=== PATIENT | male | born 1975 | race Caucasian/White ===

== ENCOUNTER 2017-10-06 11:28 | Inpatient (IN) | payer OTHER ==
[~2017-10-06] VITALS: Ht 167.6 cm; Wt 72.6 kg
--- NOTE | 2017-10-06 11:30 | NUR ---
BB FAMILY FOR SEVERE ABDOMINAL PAIN, BILATERAL GROIN PAIN. PT STS HE'S BEEN HAVING DIARRHEA IN THE PAST 3 DAYS, BUT NO EPISODE TODAY. PT HAS A H/O AIDS. H/O CVA 3 YRS AGO AND HAS RT SIDED DEFICIT/WEAKNESS. A/OX4. NAD ALL NEEDS ARE ATTENDED, KEPT COMFORTABLE. PENDING ER MD WISDOM
[2017-10-06] MEDS ORDERED: ONDANSETRON HCL/PF 4 MG/2 ML VIAL ONE ×2 (12:22→13:31)
[2017-10-06] MEDS ORDERED: MORPHINE SULFATE INJ 4 MG/ML DISP.SYRIN ONE (12:23)
[2017-10-06 12:27] LABS: BASOPHILS # (AUTO) 0.1 /CMM (0.0-0.2); BASOPHILS % (AUTO) 1.5 % (0.0-2.0); EOSINOPHILS % (AUTO) 1.7 % (0.0-6.0); HEMATOCRIT 41 % (39-51); HEMOGLOBIN 13.1 g/dL (13.5-17.5); LYMPHOCYTES # (AUTO) 2.1 /CMM (0.8-4.8); LYMPHOCYTES % (AUTO) 30.9 % (20.0-44.0); MEAN CORPUSCULAR HGB CONC 32 g/dl (31.0-36.0); MEAN CORPUSCULAR VOLUME 74 fL (80-96); MONOCYTES # (AUTO) 0.5 /CMM (0.1-1.30); MONOCYTES % (AUTO) 7.1 % (2.0-12.0); NEUTROPHILS # (AUTO) 3.9 /CMM (1.8-8.9); NEUTROPHILS % (AUTO) 58.8 % (43.0-81.0); PLATELET COUNT (AUTO) 247 /CMM (150-450); RDW COEFFICIENT OF VARIATION 17.6 (11.5-15.0); RED BLOOD CELL COUNT(AUTO) 5.51 MIL/uL (4.5-6.0); WHITE BLOOD COUNT (AUTO) 6.7 K/uL (4.3-11.0)
[2017-10-06] MEDS ORDERED: IV NS 0.9% 1,000 ML BAG IV ONE (12:30)
[2017-10-06] MEDS ORDERED: ONDANSETRON HCL/PF 4 MG/2 ML VIAL IVP ONE (12:30)
[2017-10-06] MEDS ORDERED: MORPHINE SULFATE INJ 2 MG/ML DISP.SYRIN IV ONE (12:30)
[2017-10-06 12:39] LABS: CALCIUM, SERUM 8.3 mg/dL (8.5-10.1); CREATININE 1.2 mg/dL (0.6-1.3); POTASSIUM 3.7 mmol/L (3.5-5.1)
[2017-10-06 12:43] LABS: INR 0.93 (0.85-1.15)
[2017-10-06 12:45] LABS: BILIRUBIN,TOTAL 0.3 mg/dL (0.2-1.0)
[2017-10-06] MEDS ORDERED: IOHEXOL-300 100 ML VIAL IV ONE (13:11)
[2017-10-06] MEDS ORDERED: IV NS 0.9% 500 ML IV ONE (13:12)
[2017-10-06] MEDS ORDERED: CT SWABBABLE VALVE TRANS SET 1 EA INFUS.SET MC ONE (13:12)
[2017-10-06] MEDS ORDERED: HYDROMORPHONE INJ 2 MG/ML DISP.SYRIN ONE ×2 (13:32→15:42)
--- NOTE | 2017-10-06 13:43 | NUR ---
DILAUDID 1MG AND ZOFRAN 4MG GIVEN. VERBAL ORDER RECEIVED
[2017-10-06] MEDS ORDERED: ABAC1TAB15 PO (14:10)
[2017-10-06] MEDS ORDERED: HYDR-3976 GT (14:10)
[2017-10-06] MEDS ORDERED: LEUC10TA PO (14:10)
[2017-10-06] MEDS ORDERED: DARU1TAB PO (14:10)
[2017-10-06] MEDS ORDERED: PYRI25TA PO (14:10)
[2017-10-06] MEDS ORDERED: SULF500T46 PO (14:10)
[2017-10-06] MEDS ORDERED: AZIT500T PO (14:10)
[2017-10-06] MEDS ORDERED: SULF1TAB48 PO (14:10)
[2017-10-06] MEDS ORDERED: BENA10TA9 PO (14:10)
--- NOTE | 2017-10-06 14:42 | NUR ---
CALLED SURGERY VESSEL BUILDER, LEFT [phone]
--- NOTE | 2017-10-06 15:20 | NUR ---
PT SAID THAT HE HAD APPENDEDCTOMY 8 YRS AGO. ALISON POTTER NOTIFIED
--- NOTE | 2017-10-06 15:39 | NUR ---
REPORT GIVEN TO URIEL NIELSEN
[2017-10-06 16:00] VITALS: BP 164/100
[2017-10-06] MEDS ORDERED: ONDANSETRON HCL/PF 4 MG/2 ML VIAL IV PRN (16:00)
[2017-10-06] MEDS ORDERED: HYDROMORPHONE INJ 0.5 MG/0.5 ML SYRINGE IV PRN ×2 (16:00)
--- NOTE | 2017-10-06 16:22 | NUR ---
TRANSFERRED TO FLOOR IN STABLE CODNITION
--- NOTE | 2017-10-06 16:25 | NUR ---
RN MS NOTES RECEIVED PT FROM E.R. STAFF, VIA WHEELCHAIR, PT IS AWAKE, ALERT AND ORIENTED, STILL WITH COMPLAINT OF 8/10 PAIN AT ABDOMEN, BACK AND LEGS, ASSISTED TO BED, MADE COMFORTABLE, ROOM SET UP ORIENTATION PROVIDED, VERBALIZED UNDERSTANDING, SEEN AND EXAMINED BY DR. SANTOS HARPER AND JAZMINE MINE WIRER AT BEDSIDE, PLAN OF CARE DISCUSSED WITH PT, VERBALIZED UNDERSTANDING, PER MD OK FOR CLEAR LIQUID DIET, PT ABLE TO AMBULATE WITH STANDBY ASSISTANCE,PT REQUESTS TO HAVE A SHOWER, OK WITH DR. HARPER.
[2017-10-06] MEDS ORDERED: MAG HYDROX/AL HYDROX/SIMETH 30 ML UDC PO PRN (17:30)
[2017-10-06] MEDS ORDERED: MAGNESIUM HYDROXIDE 30 ML UDC PO PRN (17:30)
[2017-10-06] MEDS ORDERED: ACETAMINOPHEN 325 MG TABLET PO PRN (17:30)
[2017-10-06] MEDS ORDERED: ONDANSETRON HCL/PF 4 MG/2 ML VIAL IVP PRN (17:30)
[2017-10-06] MEDS ORDERED: Z GUARD REMEDY 2 OZ OINT TP PRN (17:30)
[2017-10-06] MEDS ORDERED: HYDROCODONE/APAP 5/325MG 1 EACH TABLET PO PRN (17:30)
[2017-10-06] MEDS: IV NS 0.9% 1,000 ML IV PRN (18:28)
[2017-10-06] MEDS: HYDROMORPHONE INJ 0.5 MG/0.5 ML SYRINGE IV PRN ×2 (18:56→23:14)
[2017-10-06] MEDS: BENAZEPRIL HCL 10 MG TABLET PO SCH (18:57)
--- NOTE | 2017-10-06 19:20 | NUR ---
MS RN OPENING NOTES RECEIVED PT RESTING IN BED, A & O X 4, NO C/O ABD PAIN, NO SOB, NO ACUTE DISTRESS NOTED. IV ACCESS TO LFA, RUNNING WITH NS @ 75 ML/HR. ON CLEAR LIQUID DIET, TOLERATING WELL. AMBULATORY WITH ASSIST. HAS RIGHT SIDED WEAKNESS DUE TO THE STROKE HX. SAFETY MEASURES IN PLACE. CALL LIGHT WITHIN REACH. WILL CONTINUE TO MONITOR FOR PAIN MGMT, SAFETY & COMFORT.
--- NOTE | 2017-10-06 19:28 | NUR ---
RN MS NOTES PT IN BED, AWAKE, ALERT AND ORIENTED, WITH COMPLAINT OF PAIN 8/10 TO ABDOMEN, BACK AND LEGS, PAIN MEDICATION GIVEN ORDERED, PT SEEN AND EXAMINED BY DR. TRONCOSO, ORDERED US OF PENIS, ALSO ORDERED ID CONSULT, DOMENICA BLOUNT INFORMED, IVF INFUSING WELL, CALL LIGHT WITHIN REACH, ALL NEEDS ATTENDED.
--- NOTE | 2017-10-06 19:55 | NUR ---
MS RN NOTE PT'S FAMILY BROUGHT 2 HOME MEDS TRIUMEQ & PREZCOBIX & GAVE TO THE PT. PT TOOK THE MEDS WITHOUT INFORMING THE NURSE, STATING HE SUPPOSE TO TAKE THESE HIV MEDS EVERYDAY, CAN NOT MISS ANY DOSE. MEDS COLLECTED FROM THE PT & SENT TO THE PHARMACY. ALSO REMINDED THE PT TO INFORM THE NURSE BEFORE TAKING ANY HOME MEDS. PT JUST NODDED HIS HEAD IN RESPONSE. WILL MONITOR CLOSELY.
[2017-10-06 20:00] VITALS: BP 133/88
--- NOTE | 2017-10-06 23:14 | NUR ---
PRN DILAUDID GIVEN PT C/O ABDOMINAL PAIN 01/08 & WANTED TO TAKE DILAUDID ONLY @ THIS TIME. PRN IV MED GIVEN. WILL REASSESS FOR EFFECTIVENESS.
[2017-10-07] MEDS: ZOLPIDEM TARTRATE 5 MG TABLET PO PRN ×2 (01:02→23:57)
--- NOTE | 2017-10-07 01:02 | NUR ---
PRN AMBIEN GIVEN PT VERBALIZED THAT HE IS UNABLE TO SLEEP, NEEDS SOMETHING FOR SLEEP. PRN AMBIEN GIVEN ORDERED. WILL REASSESS FOR EFFECTIVENESS.
[2017-10-07] MEDS: HYDROMORPHONE INJ 0.5 MG/0.5 ML SYRINGE IV PRN ×4 (04:14→22:09)
--- NOTE | 2017-10-07 04:14 | NUR ---
PRN DILAUDID GIVEN PT C/O ABDOMINAL PAIN 01/08 & WANTED TO TAKE DILAUDID ONLY. PRN IV MED GIVEN. WILL REASSESS FOR EFFECTIVENESS.
[2017-10-07 05:17] LABS: *BASOS 0 % (Not Estab.); *EOS 2 % (Not Estab.); *EOS, ABSOLUTE 0.1 x10E3/uL (0.0-0.4); *HCT 38.6 % (37.5-51.0); *HGB 12.3 g/dL (13.0-17.7); *IMMATURE GRANULOCYTES 1 % (Not Estab.); *LYMPHOCYTES 36 % (Not Estab.); *LYMPHS, ABSOLUTE 2.3 x10E3/uL (0.7-3.1); *MCH 24.2 pg (26.6-33.0); *MCHC 31.9 g/dL (31.5-35.7); *MCV 76 fL (79-97); *MONOCYTES 8 % (Not Estab.); *MONOS, ABSOLUTE 0.5 x10E3/uL (0.1-0.9); *NEUTROPHILS 53 % (Not Estab.); *NEUTROPHILS, ABSOLUTE 3.5 x10E3/uL (1.4-7.0); *PLT 248 x10E3/uL (150-379); *RBC 5.08 x10E6/uL (4.14-5.80); *RDW 17.8 % (12.3-15.4)
--- NOTE | 2017-10-07 06:37 | NUR ---
MS RN CLOSING NOTES PT SLEPT WELL @ NIGHT, A & O X 4, NO C/O ABD PAIN @ THIS TIME, NO SOB, NO ACUTE DISTRESS NOTED. IV ACCESS TO LFA, RUNNING WITH NS @ 75 ML/HR. ON CLEAR LIQUID DIET, TOLERATING WELL. AMBULATORY WITH ASSIST. HAS RIGHT SIDED WEAKNESS DUE TO THE STROKE HX. ALL NEEDS MET. SAFETY MEASURES IN PLACE. CALL LIGHT WITHIN REACH. WILL ENDORSE TO AM RN FOR CONTINUITY OF CARE.
[2017-10-07 06:51] LABS: BASOPHILS % (AUTO) 0.4 % (0.0-2.0); EOSINOPHILS % (AUTO) 2.6 % (0.0-6.0); HEMATOCRIT 32 % (39-51); HEMOGLOBIN 10.5 g/dL (13.5-17.5); LYMPHOCYTES # (AUTO) 1.6 /CMM (0.8-4.8); LYMPHOCYTES % (AUTO) 29.9 % (20.0-44.0); MEAN CORPUSCULAR HGB CONC 33 g/dl (31.0-36.0); MEAN CORPUSCULAR VOLUME 74 fL (80-96); MONOCYTES # (AUTO) 0.4 /CMM (0.1-1.30); MONOCYTES % (AUTO) 7.5 % (2.0-12.0); NEUTROPHILS # (AUTO) 3.2 /CMM (1.8-8.9); NEUTROPHILS % (AUTO) 59.6 % (43.0-81.0); PLATELET COUNT (AUTO) 225 /CMM (150-450); RDW COEFFICIENT OF VARIATION 18.4 (11.5-15.0); RED BLOOD CELL COUNT(AUTO) 4.31 MIL/uL (4.5-6.0); WHITE BLOOD COUNT (AUTO) 5.3 K/uL (4.3-11.0)
[2017-10-07 07:10] LABS: ALBUMIN 1.7 g/dL (3.4-5.0); BILIRUBIN,TOTAL 0.3 mg/dL (0.2-1.0); CALCIUM, SERUM 7.8 mg/dL (8.5-10.1); CREATININE 0.5 mg/dL (0.6-1.3); MAGNESIUM 1.6 mg/dL (1.8-2.4); PHOSPHORUS 2.6 mg/dL (2.5-4.9); POTASSIUM 3.5 mmol/L (3.5-5.1)
[2017-10-07 07:16] LABS: THYROID STIMULATING HORMONE 5.861 uIU/mL (0.358-3.74)
[2017-10-07 08:00] VITALS: BP 126/86
--- NOTE | 2017-10-07 08:00 | NUR ---
rn notes RECEIVED PATIENT IN THE BED A/O X4, NO SOB. PATIENT FALL PRECAUTION, IV INFUSING ON LEFT UPPER ARN NS AT 75 ML/HR. SCHEDULED MEDICATION ADMINISTER. PATIENT USING URINAL. NEEDS ATTENDED AND ANTICIPATED, CALL LIGHT WITHIN TO REACH. CONTINUED MONITORING.
[2017-10-07] MEDS ORDERED: PREZCOBIX PO SCH (09:00)
[2017-10-07] MEDS ORDERED: TRIUMEQ PO SCH (09:00)
[2017-10-07] MEDS ORDERED: BENAZEPRIL HCL 10 MG TABLET PO SCH (09:00)
[2017-10-07 09:09] LABS: BAND % (MANUAL) 2 % (0.0-5.0); EOSINOPHILS % (MANUAL) 4 % (0-4); LYMPHOCYTES % (MANUAL) 35 % (16-48); MONOCYTES % (MANUAL) 7 % (0-11.0); NEUTROPHILS % (MANUAL) 52 (42-76)
[2017-10-07] MEDS: NYSTATIN (PYXIS) 500,000 UNIT/5 ML ORAL.SUSP PO SCH ×3 (09:14→16:37)
[2017-10-07] MEDS: PANTOPRAZOLE 40 MG TABLET.DR PO SCH (09:14)
[2017-10-07] MEDS: BENAZEPRIL HCL 10 MG TABLET PO SCH (09:15)
--- NOTE | 2017-10-07 09:16 | NUR ---
RN NOTES ADMINISTERED DILAUDID 0.5 MG/ML IV PUSH PER PATIENT REQUEST FOR GENERALIZED PAIN 01/08, V/S TAKEN BP -126/86, P-100, CONTINUED MONITORING.
[2017-10-07] MEDS: IV NS 0.9% 1,000 ML IV PRN (09:36)
[2017-10-07] MEDS: Magnesium 1GM/D5W 100ML PREMIX 100 ML IV SCH ×2 (09:36→10:43)
[2017-10-07] MEDS: SULFAMETH/TRIMETH 800/160 MG 1 UDTAB TABLET PO SCH (09:41)
[2017-10-07 14:22] LABS: *% CD 4 POS. LYMPH 7.5 % (30.8-58.5); *% CD 8 POS. LYMPH 81.8 % (12.0-35.5); *ABSOLUTE CD 4 HELPER 173 /uL (359-1519); *ABSOLUTE CD 8 SUPPRESSOR 1881 /uL (109-897); *CD4/CD8 RATIO 0.09 (0.92-3.72)
[2017-10-07] MEDS ORDERED: HYDROMORPHONE INJ 0.5 MG/0.5 ML SYRINGE IV PRN (14:30)
--- NOTE | 2017-10-07 15:12 | NUR ---
RN NOTES ADMINISTERED DILAUDID 1 MG /ML IV PUSH PER PATIENT REQUEST FIR GENERALIZED PAIN /, V/S TAKEN BP -120/76, P-68. ENCOURAGED TO INCREASE FLUID INTAKE. CONTINUED MONITORING.
[2017-10-07 16:00] VITALS: BP 124/89
--- NOTE | 2017-10-07 16:00 | NUR ---
RN NOTES US SPECIMEN COLLECTED. MEDICATION WERE ADMINISTERED FOR PAIN EFFECTIVE. CONTINUED MONITORING.
--- NOTE | 2017-10-07 18:30 | NUR ---
RN NOTES PATIENT IN THE BED. NO ACUTE RESPIRATORY DISTRESS. INFUSING NS AT 75 ML/HR INTACT. CALL LIGHT WITHIN TO REACH. ENDORSED ONCOMING NURSE FOR PAULETTE.
[2017-10-07 19:49] LABS: APPEARANCE,URINE CLEAR (CLEAR); BILIRUBIN,URINE NEGATIVE (NEGATIVE); BLOOD, URINE 1+ Ery/uL (NEGATIVE); COLOR,URINE YELLOW (YELLOW); KETONES,URINE NEGATIVE (NEGATIVE); LEUKOCYTE ESTERASE ,URINE NEGATIVE (NEGATIVE); NITRITE, URINE NEGATIVE (NEGATIVE); PH,URINE 7.5 (5.0-8.0); PROTEIN,URINE 3+ mg/dl (NEGATIVE); UGLUCOSE NEGATIVE (NEGATIVE)
[2017-10-07] MEDS: TRIUMEQ TABLET PO SCH (20:00)
[2017-10-07 20:19] VITALS: BP 118/62
[2017-10-07 20:30] LABS: BACTERIA,URINE None seen /HPF (None Seen); SQUAMOUS EPITHELIAL CELL,UR Rare /HPF (None Seen); WBC,URINE 0-2 /HPF (0-3)
[2017-10-08] MEDS: PANTOPRAZOLE 40 MG TABLET.DR PO SCH (06:35)
[2017-10-08] MEDS: HYDROMORPHONE INJ 0.5 MG/0.5 ML SYRINGE IV PRN ×4 (06:35→20:32)
--- NOTE | 2017-10-08 06:44 | NUR ---
MS RN CLOSING NOTES PATIENT REMAIN IN STABLE CONDITION, ALERT ET ORIENTED. RESP. EVEN ET UNLABORED. NO SOB, NO ACUTE DISTRESS NOTED. IV ACCESS TO LFA, RUNNING WITH NS @ 75 ML/HR. ON CLEAR LIQUID DIET, TOLERATING WELL. ADMINSITERED ALL MEDS ORDERED. AMBULATORY WITH ASSIST. HAS RIGHT SIDED WEAKNESS DUE TO THE STROKE HX. ALL NEEDS MET. SAFETY MEASURES IN PLACE. CALL LIGHT WITHIN REACH. WILL ENDORSE TO AM RN FOR CONTINUITY OF CARE.
--- NOTE | 2017-10-08 07:25 | NUR ---
RN CLOSING NOTES: PATIENT RESTING IN BED. NONLABORED BREATHING NOTED ON ROOM AIR. NO SIGNS OF DISTRESS NOTED. IV SITE ON RIGHT ARM PATENT AND INTACT WITH ORDERED FLUIDS RUNNING. BED IN LOWEST LOCKED POSITION. CALL LIGHT WITHIN REACH WILL CONTINUE TO MONITOR
[2017-10-08 08:00] VITALS: BP 123/73
[2017-10-08] MEDS: SULFAMETH/TRIMETH 800/160 MG 1 UDTAB TABLET PO SCH (08:44)
[2017-10-08] MEDS: NYSTATIN (PYXIS) 500,000 UNIT/5 ML ORAL.SUSP PO SCH ×3 (08:47→16:22)
[2017-10-08] MEDS: BENAZEPRIL HCL 10 MG TABLET PO SCH (08:47)
[2017-10-08] MEDS ORDERED: LEUCOVORIN CALCIUM 5 MG TABLET PO SCH (09:00)
[2017-10-08] MEDS ORDERED: PYRIMETHAMINE 25 MG PO SCH (09:00)
[2017-10-08] MEDS ORDERED: SULFASALAZINE 500 MG TABLET PO SCH (09:00)
[2017-10-08 11:06] LABS: BASOPHILS % (AUTO) 0.5 % (0.0-2.0); EOSINOPHILS % (AUTO) 2.7 % (0.0-6.0); HEMATOCRIT 32 % (39-51); HEMOGLOBIN 10.3 g/dL (13.5-17.5); LYMPHOCYTES # (AUTO) 1.3 /CMM (0.8-4.8); LYMPHOCYTES % (AUTO) 32.4 % (20.0-44.0); MEAN CORPUSCULAR HGB CONC 32 g/dl (31.0-36.0); MEAN CORPUSCULAR VOLUME 74 fL (80-96); MONOCYTES # (AUTO) 0.4 /CMM (0.1-1.30); MONOCYTES % (AUTO) 9.1 % (2.0-12.0); NEUTROPHILS # (AUTO) 2.2 /CMM (1.8-8.9); NEUTROPHILS % (AUTO) 55.3 % (43.0-81.0); PLATELET COUNT (AUTO) 194 /CMM (150-450); RDW COEFFICIENT OF VARIATION 18.2 (11.5-15.0); RED BLOOD CELL COUNT(AUTO) 4.34 MIL/uL (4.5-6.0)
[2017-10-08 11:12] LABS: POTASSIUM 3.8 mmol/L (3.5-5.1)
[2017-10-08 11:35] LABS: EOSINOPHILS % (MANUAL) 3 % (0-4); LYMPHOCYTES % (MANUAL) 35 % (16-48); MONOCYTES % (MANUAL) 6 % (0-11.0); NEUTROPHILS % (MANUAL) 56 (42-76)
--- NOTE | 2017-10-08 11:43 | NUR ---
PATIENT TO SHOWER NEEDED PER ORDERS
[2017-10-08 12:48] VITALS: BP 124/85
--- NOTE | 2017-10-08 13:57 | NUR ---
1334 PATIENT STATING HAVING A 7/10 CHEST PAIN. STATING THAT IT IS ACHING. DENYING THAT IT IS RADIATING TO SHOULDERS. NONLABORED BREATHING NOTED ON ROOM AIR. BP WNL STAT EKG ORDERED EKG RESULTS INDICATING NORMAL SINUS RHYTHM PATIENT ASSESSED NOW- STATES THAT PAIN HAS CEASED
--- NOTE | 2017-10-08 14:27 | NUR ---
MEDICAL RECORDS FROM DR MAYORGA- UNABLE TO REACH MEDICAL RECORDS TO OBTAIN REQUESTED RECORDS BY DR DENNIS. ÁLVARO BLOUNT NOTIFIED WILL ATTEMPT AGAIN
[2017-10-08] MEDS: AZITHROMYCIN 250 MG TABLET PO SCH (15:06)
[2017-10-08 16:00] VITALS: BP 120/72
--- NOTE | 2017-10-08 19:20 | NUR ---
MEDICAL RECORDS FROM DR MAYORGA- FAXED PATIENT'S CONSENT AGAIN, UNABLE TO REACH OFFICE, ENDORSED TO NEXT RN
--- NOTE | 2017-10-08 19:20 | NUR ---
RN CLOSING NOTES: PATIENT RESTING IN BED. NONLABORED BREATHING NOTED ON ROOM AIR. NO SIGNS OF DISTRESS NOTED. IV SITE ON RIGHT ARM PATENT AND INTACT WITH ORDERED FLUIDS RUNNING. BED IN LOWEST LOCKED POSITION. NO DIARRHEA DURING SHIFT. BED IN LOWEST LOCKED POSITION. CALL LIGHT WITHIN REACH. ENDORSED TO NEXT NURSE
--- NOTE | 2017-10-08 19:24 | NUR ---
PER TOM, WOUND CULTURE FROM ANUS TO BE SENT TO LAB. COLLECTED
[2017-10-08 20:00] VITALS: BP_SYST 108; BP_SYST 130; BP_DIAS 74; BP_DIAS 79
[2017-10-08] MEDS: TRIUMEQ TABLET PO SCH (20:15)
--- NOTE | 2017-10-08 21:16 | NUR ---
RN NOTES PATIENT IN BED, ALERT AND ORIENTED X4, NO SOB, TOLERATING ROOM AIR, SPO2 96%, COMPLAINING OF PAIN TO THE EPIGASTRIC AREA OF 8/10, WAS GIVEN DILAUDID 3 HRS AGO. WILL GIVE PAIN MEDICATION WHEN DUE. AMBULATES TO THE TOILET, HX OF CVA WITH RIGHT SIDED WEAKNESS, NEEDS ATTENDED, CALL LIGHT WITHIN REACH.
[2017-10-09] MEDS: HYDROMORPHONE INJ 0.5 MG/0.5 ML SYRINGE IV PRN ×4 (00:37→15:25)
[2017-10-09] MEDS: IV NS 0.9% 1,000 ML IV PRN ×2 (00:41→14:12)
[2017-10-09] MEDS ORDERED: HYDROMORPHONE INJ 2 MG/ML DISP.SYRIN ONE (04:38)
--- NOTE | 2017-10-09 05:22 | NUR ---
RN NOTES UNABLE TO SCAN DILAUDID, TAKEN DILAUDID 2MG/ML IN ANOTHER UNIT, RUN OUT IN MED SURG
--- NOTE | 2017-10-09 06:27 | NUR ---
RN NOTES PATIENT IS ALERT AND AWAKE, NO SOB, ON ROOM AIR, NO COMPLAIN OF PAIN AT THIS TIME, PERFORMED WOUND CARE TO SACRAL AREA, FOUND IV LINE DISLODGED, STARTED NEW LINE TO LEFT HAND. PATIENT DECLINE TO SIGN CONSENT FOR RIGHT CHEEK BIOPSY, WANTS TO SPEAK TO MD FIRST. NEEDS ATTENDED, CALL LIGHT WITHIN REACH. Addendum: 10/09/17 at 0629 by XIOMARA SMYTH RN PLEASE IGNORE ABOVE NOTES, NOT FOR PATIENT
--- NOTE | 2017-10-09 06:30 | NUR ---
RN NOTES ALERT AND AWAKE, NO DISTRESS, NO SOB, PROVIDED PAIN MEDICATION TO PAIN IN ABDOMEN. REPORTED GOOD RELIEF. CONTINENT OF BOWEL AND BLADDER, ABLE TO AMBULATE TO TOILET, SLEPT FOR 5 HOURS, NEEDS ATTENDED, CALL LIGHT WITHIN REACH.
--- NOTE | 2017-10-09 07:45 | NUR ---
RN NOTES PATIENT A/OX4, VERBALLY RESPONSIVE, NO DISTRESS NOTED, BREATHING EVEN AND UNLABORED, NO SOB NOTED, PATIENT DENIES PAIN AT THIS TIME, NEEDS ATTENDED AND MET. IVF INFUSING AND TOLERATING WELL, CALL LIGHT WITHIN REACH, WILL CONTINUE TO MONITOR.
[2017-10-09 08:00] VITALS: BP 135/88
[2017-10-09] MEDS: NYSTATIN (PYXIS) 500,000 UNIT/5 ML ORAL.SUSP PO SCH ×3 (08:31→17:01)
[2017-10-09] MEDS: AZITHROMYCIN 250 MG TABLET PO SCH (08:31)
[2017-10-09] MEDS: PANTOPRAZOLE 40 MG TABLET.DR PO SCH (08:31)
[2017-10-09] MEDS: SULFAMETH/TRIMETH 800/160 MG 1 UDTAB TABLET PO SCH (08:31)
[2017-10-09] MEDS: BENAZEPRIL HCL 10 MG TABLET PO SCH (08:31)
[2017-10-09 09:08] LABS: BASOPHILS % (AUTO) 0.5 % (0.0-2.0); EOSINOPHILS % (AUTO) 5.4 % (0.0-6.0); HEMATOCRIT 32 % (39-51); HEMOGLOBIN 10.2 g/dL (13.5-17.5); MEAN CORPUSCULAR HGB CONC 32 g/dl (31.0-36.0); MEAN CORPUSCULAR VOLUME 74 fL (80-96); MONOCYTES # (AUTO) 0.3 /CMM (0.1-1.30); MONOCYTES % (AUTO) 8.1 % (2.0-12.0); NEUTROPHILS # (AUTO) 1.9 /CMM (1.8-8.9); PLATELET COUNT (AUTO) 229 /CMM (150-450); RED BLOOD CELL COUNT(AUTO) 4.29 MIL/uL (4.5-6.0); WHITE BLOOD COUNT (AUTO) 3.4 K/uL (4.3-11.0)
[2017-10-09 09:17] LABS: POTASSIUM 3.4 mmol/L (3.5-5.1)
--- NOTE | 2017-10-09 10:00 | NUR ---
RN NOTES PATIENT SEEN BY DOMENICA POPE NP.
[2017-10-09] MEDS ORDERED: POTASSIUM CHLORIDE 20 MEQ TAB.PRT.SR PO ONE (11:00)
--- NOTE | 2017-10-09 15:00 | NUR ---
RN NOTES PATIENT SEEN BY DR. ERASMO HARPER. NO NEW ORDER AT THIS TIME.
[2017-10-09] MEDS: SOD FERRIC GLUC 125 MG in IV NS 0.9% 100 ML IV SCH (15:24)
[2017-10-09 16:00] VITALS: BP 139/92
[2017-10-09 16:20] LABS: *HIV-1 log10 RNA 3.653 (.)
[2017-10-09] MEDS: HYDROCODONE BIT/HOMATROPINE 5 ML UDC PO PRN (17:01)
[2017-10-09] MEDS: METRONIDAZOLE 500MG/ NS 100ML 500 MG in PREMIX 1 EA IV SCH ×2 (17:03→23:29)
[2017-10-09] MEDS: HYDROMORPHONE INJ 2 MG/ML DISP.SYRIN IV PRN ×2 (17:57→21:12)
--- NOTE | 2017-10-09 18:33 | NUR ---
RN NOTES PATIENT A/OX4, BREATHING EVEN AND UNLABORED, PATIENT IS ON CONTACT PRECAUTION FOR C. DIFF, PER PATIENT HE HAD BM X3, SOFT STOOLS. PATIENT SEEN AND EXAMINED BY ID, DR. HARPER AND GI . DOMENICA POPE SPRING COVERER ADJUSTED DILAUDID TO EVERY 3 HOURS PRN, AND ADDED A COUGH MEDICINE PRN. PATIENT JUST RECEIVED DILAUDID AND RESTING AT THIS TIME. ALL NEEDS ATTENDED AND MET, CALL LIGHT WITHIN REACH, WILL ENDORSE TO COMMUNITY AMBASSADOR FOR PAULETTE.
[2017-10-09] MEDS: TRIUMEQ TABLET PO SCH (19:41)
[2017-10-09 20:00] VITALS: BP 143/79
--- NOTE | 2017-10-09 21:13 | NUR ---
DILAUDID 2 MG IV ADMINISTERED, C/O ABDOMINAL PAIN, 01/08 ON PAIN SCALE. Addendum: 10/09/17 at 2115 by SIMA SARMIENTO RN DILAUDID 1 MG IV GIVEN. USER ERROR ABOVE.
[2017-10-10] MEDS: HYDROMORPHONE INJ 2 MG/ML DISP.SYRIN IV PRN ×4 (01:02→20:57)
--- NOTE | 2017-10-10 01:02 | NUR ---
DILAUDID 1 MG IVP ADMINISTERED, C/O ABDOMINAL PAIN, 8/10 ON PAIN SCALE.
--- NOTE | 2017-10-10 07:15 | NUR ---
MS RN NOTES' RECEIVED PATIENT IN BED ALERT ORIENTED X4. NO ACUTE DISTRESS NOTED. BREATHING UNLABORED. DENIED ANY PAIN. IV ACCESS PATENT AND INTACT. SAFETY MEASURES IN PLACE. CALL LIGHT WITHIN REACH. WILL CONTINUE TO MONITOR ACCORDINGLY.
[2017-10-10 07:36] LABS: CALCIUM, SERUM 8.2 mg/dL (8.5-10.1); CREATININE 0.9 mg/dL (0.6-1.3); POTASSIUM 4.4 mmol/L (3.5-5.1)
[2017-10-10 08:00] VITALS: BP 135/92
[2017-10-10] MEDS: PANTOPRAZOLE 40 MG TABLET.DR PO SCH (08:14)
[2017-10-10] MEDS: METRONIDAZOLE 500MG/ NS 100ML 500 MG in PREMIX 1 EA IV SCH ×3 (08:15→23:15)
[2017-10-10] MEDS: NYSTATIN (PYXIS) 500,000 UNIT/5 ML ORAL.SUSP PO SCH ×3 (08:15→17:52)
[2017-10-10] MEDS: AZITHROMYCIN 250 MG TABLET PO SCH (08:15)
[2017-10-10] MEDS: SULFAMETH/TRIMETH 800/160 MG 1 UDTAB TABLET PO SCH (08:15)
[2017-10-10] MEDS: BENAZEPRIL HCL 10 MG TABLET PO SCH (08:16)
[2017-10-10] MEDS: IV NS 0.9% 1,000 ML IV PRN (08:17)
[2017-10-10 09:17] LABS: BASOPHILS % (AUTO) 0.2 % (0.0-2.0); HEMATOCRIT 33 % (39-51); HEMOGLOBIN 10.4 g/dL (13.5-17.5); LYMPHOCYTES # (AUTO) 1.4 /CMM (0.8-4.8); LYMPHOCYTES % (AUTO) 31.2 % (20.0-44.0); MEAN CORPUSCULAR HGB CONC 32 g/dl (31.0-36.0); MEAN CORPUSCULAR VOLUME 75 fL (80-96); MONOCYTES # (AUTO) 0.4 /CMM (0.1-1.30); MONOCYTES % (AUTO) 8.1 % (2.0-12.0); NEUTROPHILS # (AUTO) 2.5 /CMM (1.8-8.9); NEUTROPHILS % (AUTO) 55.5 % (43.0-81.0); PLATELET COUNT (AUTO) 233 /CMM (150-450); RDW COEFFICIENT OF VARIATION 18.2 (11.5-15.0); RED BLOOD CELL COUNT(AUTO) 4.38 MIL/uL (4.5-6.0); WHITE BLOOD COUNT (AUTO) 4.5 K/uL (4.3-11.0)
--- NOTE | 2017-10-10 09:47 | NUR ---
MS RN NOTES SEEN AND EVALUATED BY MINE POPE WITH NEW ORDERS MADE NOTED AND CARRIED OUT.
[2017-10-10] MEDS ORDERED: PIPERACILLIN /TAZOBACTAM 4.5 G in IV NS 0.9% 50 ML IV ONE (11:00)
[2017-10-10] MEDS: SOD FERRIC GLUC 125 MG in IV NS 0.9% 100 ML IV SCH (13:34)
[2017-10-10 16:00] VITALS: BP 127/84
[2017-10-10] MEDS: CHOLESTYRAMINE/ASPARTAME 4 G/PKT PACKET PO SCH ×2 (16:47→20:27)
[2017-10-10] MEDS: PIPERACILLIN /TAZOBACTAM 3.375 G in IV NS 0.9% 50 ML IV SCH ×2 (17:51→23:16)
--- NOTE | 2017-10-10 18:11 | NUR ---
MS RN NOTES PATIENT SITTING IN BED ALERT ORIENTED X 4. NO ACUTE DISTRESS NOTED. BREATHING UNLABORED. IV ACCESS PATENT AND INTACT, NO BLEEDING OR SWELLING NOTED. DUE MEDICATIONS GIVEN, NO ASE NOTED.NEEDS ATTENDED AND ANTICIPATED. SAFETY MEASURES IN PLACE. CALL LIGHT WITHIN REACH. WILL CONTINUE TO MONITOR ACCORDINGLY. WILL ENDORSE TO NIGHT NURSE FOR CONTINUITY OF CARE.
--- NOTE | 2017-10-10 19:30 | NUR ---
RN NOTES: RECEIVED LYING ON BED, ON ROOM AIR, A/OX4,RFA G#20 INTACT/PATENT IVF ON NS AT 75 ML/HR ONGOING VIA INFUSION PUMP,AMBULATORY WITH ASSIST,CONTINENT BOTH B/B;KEPT CALL LIGHT WITHIN EASY REACH, BED LOW AND LOCKED,NO SIGN OF PAIN AND DISCOMFORT UPON ENDORSEMENT HE JUST GOT HIS PAIN MEDICATION AT AROUND 1600.KEPT MONITORED.
[2017-10-10 20:00] VITALS: BP 129/71
[2017-10-10] MEDS: TRIUMEQ TABLET PO SCH (20:27)
--- NOTE | 2017-10-10 20:40 | NUR ---
RN NOTES: PATIENT ASSISTED TO THE BATHROOM AFTER TAKING ORAL MEDICATION, HAD 1 BM, MODERATE AMOUNT, STOOL CONSISTENCY, NOT WATERY,OTHERS ARE SEMI SOFT ALREADY.KEPT CALL LIGHT WITHIN EASY REACH.
[2017-10-10] MEDS: HYDROCODONE BIT/HOMATROPINE 5 ML UDC PO PRN (20:58)
--- NOTE | 2017-10-10 21:23 | NUR ---
RN NOTES: COMPLAINED OF GENERALIZED PAIN AND REQUESTED FOR DILAUDID PRN, PAIN 10/10, AND HE HAD ON AND OFF COUGH, HE ALSO REQUESTED FOR HIS PRN COUGH,HE CLAIMED HE HAS PLEURITIC PAIN WHEN HE IS COUGHING.PRIOR TO GIVING OF IV MEDICATION, NOTICE LEAKING ON THE IV SITE,EXPLAINED TO PATIENT NEED TO RE-INSERT, HE AGREED, IV CANNULA INSERTED ON THE LFA G#22 AT 2114, 1 ATTEMPT WITH GOOD BACK FLOW SECURED WITH TRANSPARENT DRESSING.DILAUDID GIVEN.
--- NOTE | 2017-10-10 21:30 | NUR ---
RN NOTES: ABLE TO SLEEP AND REST AT SHORT INTERVAL, KEPT MONITORED , CALL LIGHT WITHIN EASY REACH.
[2017-10-11] MEDS: HYDROMORPHONE INJ 2 MG/ML DISP.SYRIN IV PRN ×4 (04:10→23:35)
[2017-10-11] MEDS: IV NS 0.9% 1,000 ML IV PRN ×2 (04:11→21:20)
--- NOTE | 2017-10-11 04:12 | NUR ---
RN NOTES: AWAKE,HE GET UP AND URINATE USING URINAL, AFTER THAT HE COMPLAINED OF PAIN 9/10 AND REQUEST FOR HIS MEDICATION, GIVEN, NON PHARMACOLOGIC INTERVENTION RENDERED,DIM LIT, AND KEPT RESTED, ISOLATION CONTINUE TO OBSERVED.CALL LIGHT [id number] EASY REACH.
--- NOTE | 2017-10-11 04:20 | NUR ---
RN NOTES: IVF CONSUMED,STARTED NEW BAG OF NS AT 75ML/HR VIA INFUSION PUM AT 0411.
[2017-10-11] MEDS: PIPERACILLIN /TAZOBACTAM 3.375 G in IV NS 0.9% 50 ML IV SCH ×4 (05:03→23:35)
--- NOTE | 2017-10-11 05:26 | NUR ---
RN NOTES: PATIENT WAS ABLE TO GET BACK TO SLEEP, KEPT IN COMFORTABLE POSITION,KEPT CALL LIGHT WITHIN EASY REACH.ON CLOSE WATCH.
--- NOTE | 2017-10-11 06:39 | NUR ---
RN NOTES: AWAKE, PLAYING GAMES IN HIS PHONE, IVF ONGOING, ISOLATION PRECAUTION OBSERVED,NO SOB,KEPT COMFORTABLE IN BED,BED LOW AND LOCKED, CALL LIGHT WITHIN EASY REACH, ENDORSED FOR CONTINUITY OF CARE.
--- NOTE | 2017-10-11 07:15 | NUR ---
MS RN NOTES RECEIVED PATIENT IN BEB, ALERT ORIENTED X 4. NO ACUTE DISTRESS NOTED. BREATHING UNLABORED. SAFETY MEASURES IN PLACE. CALL LIGHT WITHIN REACH. WILL CONTINUE TO MONITOR ACCORDINGLY.
[2017-10-11 08:00] VITALS: BP 133/88
[2017-10-11] MEDS: METRONIDAZOLE 500MG/ NS 100ML 500 MG in PREMIX 1 EA IV SCH ×2 (08:11→15:57)
[2017-10-11] MEDS: PANTOPRAZOLE 40 MG TABLET.DR PO SCH (08:11)
[2017-10-11] MEDS: AZITHROMYCIN 250 MG TABLET PO SCH (08:12)
[2017-10-11] MEDS: SULFAMETH/TRIMETH 800/160 MG 1 UDTAB TABLET PO SCH (08:12)
[2017-10-11] MEDS: CHOLESTYRAMINE/ASPARTAME 4 G/PKT PACKET PO SCH ×2 (08:12→21:16)
[2017-10-11] MEDS: NYSTATIN (PYXIS) 500,000 UNIT/5 ML ORAL.SUSP PO SCH ×3 (08:12→17:05)
[2017-10-11] MEDS: BENAZEPRIL HCL 10 MG TABLET PO SCH (08:13)
[2017-10-11 13:01] LABS: BASOPHILS % (AUTO) 0.3 % (0.0-2.0); HEMATOCRIT 33 % (39-51); HEMOGLOBIN 10.5 g/dL (13.5-17.5); LYMPHOCYTES # (AUTO) 1.4 /CMM (0.8-4.8); LYMPHOCYTES % (AUTO) 39.7 % (20.0-44.0); MEAN CORPUSCULAR HGB CONC 32 g/dl (31.0-36.0); MEAN CORPUSCULAR VOLUME 74 fL (80-96); MONOCYTES # (AUTO) 0.2 /CMM (0.1-1.30); MONOCYTES % (AUTO) 6.9 % (2.0-12.0); NEUTROPHILS # (AUTO) 1.6 /CMM (1.8-8.9); NEUTROPHILS % (AUTO) 44.1 % (43.0-81.0); PLATELET COUNT (AUTO) 280 /CMM (150-450); RDW COEFFICIENT OF VARIATION 18.4 (11.5-15.0); RED BLOOD CELL COUNT(AUTO) 4.37 MIL/uL (4.5-6.0); WHITE BLOOD COUNT (AUTO) 3.6 K/uL (4.3-11.0)
[2017-10-11 13:11] LABS: CALCIUM, SERUM 8.5 mg/dL (8.5-10.1); CREATININE 1.1 mg/dL (0.6-1.3); POTASSIUM 3.5 mmol/L (3.5-5.1)
[2017-10-11] MEDS: SOD FERRIC GLUC 125 MG in IV NS 0.9% 100 ML IV SCH (14:23)
[2017-10-11 16:00] VITALS: BP 130/86
[2017-10-11] MEDS: VANCOMYCIN HCL 125 MG/2.5 ML ORAL.SUSP PO SCH ×2 (18:10→23:35)
--- NOTE | 2017-10-11 19:00 | NUR ---
MS RN NOTES SEEN AND EVALUATED BY MINE POPE WITH NEW ORDERS MADE. NOTED AND CARRIED OUT.
--- NOTE | 2017-10-11 19:00 | NUR ---
MS RN NOTES PATIENT IN BED, WATCHING TV, ALERT ORIENTED X4 .NO ACUTE DISTRESS NOTED. BREATHING UNLABORED. DUE MEDICATIONS GIVEN, NO ASE NOTED. NEEDS ATTENDED AND ANTICIPATED. SAFETY MEASURES IN PLACE. CALL LIGHT WITHIN REACH. WILL CONTINUE TO MONITOR ACCORDINGLY. ENDORSED TO NIGHT NURSE FOR CONTINUITY OF CARE.
--- NOTE | 2017-10-11 19:35 | NUR ---
MS RN OPENING NOTES RECEIVED PATIENT IN BED, AWAKE, A & O X 4. NO ACUTE DISTRESS NOTED. HAS C/O MILD ABDOMINAL PAIN, OFFERED NORCO BUT WOULD LIKE TO WAIT FOR ANOTHER 30-40 MINUTES BECAUSE DILAUDID IS NOT DUE YET ORDERED. BREATHING UNLABORED. IV ACCESS TO LFA, INTACT PATENT RUNNING WITH IVF. BED IN LOW LOCKED POSITION. REMINDED PT TO INFORM THE NURSE SO STOOL COULD BE COLLECTED TONIGHT ORDERED BY MD. PT VERBALIZED UNDERSTANDING. SAFETY MEASURES IN PLACE. CALL LIGHT WITHIN REACH. WILL CONTINUE TO MONITOR CLOSELY.
[2017-10-11 20:00] VITALS: BP 134/81
[2017-10-11] MEDS: TRIUMEQ TABLET PO SCH (20:17)
--- NOTE | 2017-10-11 20:18 | NUR ---
PRN DILAUDID GIVEN PT C/O ABDOMINAL PAIN 01/08 & WANTED TO TAKE DILAUDID ONLY. PRN IV MED GIVEN. WILL REASSESS FOR EFFECTIVENESS.
--- NOTE | 2017-10-11 23:35 | NUR ---
PRN DILAUDID GIVEN PT C/O ABDOMINAL PAIN 02/08 & WANTED TO TAKE DILAUDID ONLY. OFFERED NORCO, BUT PT REFUSED STATING THAT IT DOESN'T DO ANYTHING TO HIM & HE DOESN'T LIKE IT. PRN IV MED GIVEN. WILL REASSESS FOR EFFECTIVENESS.
[2017-10-12] MEDS: METRONIDAZOLE 500MG/ NS 100ML 500 MG in PREMIX 1 EA IV SCH ×4 (00:21→23:24)
--- NOTE | 2017-10-12 02:00 | NUR ---
MS RN NOTE STOOL COLLECTED & SENT TO THE LAB ORDERED BY MD. WAITING FOR THE RESULTS.
[2017-10-12] MEDS: PIPERACILLIN /TAZOBACTAM 3.375 G in IV NS 0.9% 50 ML IV SCH ×4 (05:25→23:24)
[2017-10-12] MEDS: VANCOMYCIN HCL 125 MG/2.5 ML ORAL.SUSP PO SCH ×4 (05:25→23:23)
[2017-10-12] MEDS: HYDROCODONE BIT/HOMATROPINE 5 ML UDC PO PRN (06:23)
--- NOTE | 2017-10-12 06:27 | NUR ---
MS RN CLOSING NOTES PT SLEPT INTERMITTENTLY @ NIGHT, A & O X 4. NO ACUTE DISTRESS NOTED. BREATHING UNLABORED, @ RA. PT C/O NON PRODUCTIVE COUGH & ASKED TO TAKE COUGH SYP. MED GIVEN & WILL MONITOR FOR EFFECTIVENESS. IV ACCESS TO LFA, INTACT PATENT RUNNING WITH IVF. BED IN LOW LOCKED POSITION. SAFETY MEASURES IN PLACE. ALL NEEDS ATTENDED TO & MET. CALL LIGHT WITHIN REACH. WILL ENDORSE TO AM RN FOR CONTINUITY OF CARE.
--- NOTE | 2017-10-12 06:28 | NUR ---
MS RN CLOSING NOTES PT SLEPT WELL @ NIGHT. NO SOB OR ACUTE DISTRESS NOTED. NO C/O PAIN VERBALIZED AFTER NORCO WAS GIVEN & IT WAS EFFECTIVE. PATIENT ALERT, ORIENTED X 4. PERIPHERAL IV INTACT PATENT, S/L. SAFETY MEASURES IN PLACE. DRESSING TO LEFT ANKLE INTACT. BED IN LOW LOCKED POSITION. ALL NEEDS MET. WILL ENDORSE TO AM RN FOR CONTINUITY OF CARE.
--- NOTE | 2017-10-12 07:20 | NUR ---
MS/RN OPENING NOTE PATIENT IN BED AWAKE. ALERT AND ORIENTED X4. DENIES SOB. RESPIRATION REGULAR AND UNLABORED. DENIES PAIN. LFA G 22 PATENT AND IV FLUID INFUSING WITH NO S/S INFILTRATION. BED LOW AND LOCKED. SIDE RAILS UP X2. CALL LIGHT WITHIN REACH. WILL CONTINUE TO MONITOR.
[2017-10-12 08:10] VITALS: BP 147/93
[2017-10-12] MEDS: AZITHROMYCIN 250 MG TABLET PO SCH (08:35)
[2017-10-12] MEDS: BENAZEPRIL HCL 10 MG TABLET PO SCH (08:35)
[2017-10-12] MEDS: SULFAMETH/TRIMETH 800/160 MG 1 UDTAB TABLET PO SCH (08:35)
[2017-10-12] MEDS: PANTOPRAZOLE 40 MG TABLET.DR PO SCH (08:35)
[2017-10-12] MEDS: CHOLESTYRAMINE/ASPARTAME 4 G/PKT PACKET PO SCH ×2 (08:36→20:19)
[2017-10-12] MEDS: NYSTATIN (PYXIS) 500,000 UNIT/5 ML ORAL.SUSP PO SCH ×3 (08:36→17:23)
[2017-10-12 13:09] LABS: *ANCANTIMYELOPEROXIDASE (MPO) <9.0 U/mL (0.0-9.0); *ANCANTIPROTEINASE 3 (PR-3) AB <3.5 U/mL (0.0-3.5)
[2017-10-12] MEDS: SOD FERRIC GLUC 125 MG in IV NS 0.9% 100 ML IV SCH (14:15)
[2017-10-12 15:11] LABS: *ANCA ATYPICAL p-ANCA <1:20 titer (Neg:<1:20); *ANCA CYTOPLASMIC (C-ANCA) <1:20 titer (Neg:<1:20); *ANCA PERINUCLEAR (P-ANCA) <1:20 titer (Neg:<1:20)
[2017-10-12 16:00] VITALS: BP 151/95
[2017-10-12] MEDS: IV NS 0.9% 1,000 ML IV PRN (16:18)
[2017-10-12 18:06] LABS: BASOPHILS % (AUTO) 0.5 % (0.0-2.0); EOSINOPHILS % (AUTO) 9.2 % (0.0-6.0); HEMATOCRIT 34 % (39-51); HEMOGLOBIN 10.9 g/dL (13.5-17.5); LYMPHOCYTES # (AUTO) 1.7 /CMM (0.8-4.8); MEAN CORPUSCULAR HGB CONC 32 g/dl (31.0-36.0); MEAN CORPUSCULAR VOLUME 74 fL (80-96); MONOCYTES # (AUTO) 0.2 /CMM (0.1-1.30); NEUTROPHILS # (AUTO) 1.7 /CMM (1.8-8.9); NEUTROPHILS % (AUTO) 43.3 % (43.0-81.0); PLATELET COUNT (AUTO) 358 /CMM (150-450); RDW COEFFICIENT OF VARIATION 18.4 (11.5-15.0); RED BLOOD CELL COUNT(AUTO) 4.61 MIL/uL (4.5-6.0)
--- NOTE | 2017-10-12 18:13 | NUR ---
MS/RN CLOSING NOTE PATIENT ALERT AND ORIENTED X4. DENIES SOB. RESPIRATION REGULAR AND UNLABORED. DENIES PAIN. PATIENT CONTINENT ON BOWEL AND BLADDER. GOOD AND GENTLE SKIN CARE RENDERED. LFA G 22 PATENT AND IV INFUSING PER ORDER AND WITH NO S/S INFILTRATION. BED LOW AND LOCKED. SIDE RAILS UP X2. CALL LIGHT WITHIN REACH. WILL ENDORSE TO HOOK LOADER.
[2017-10-12 18:16] LABS: CALCIUM, SERUM 8.7 mg/dL (8.5-10.1); CREATININE 1.1 mg/dL (0.6-1.3); POTASSIUM 3.7 mmol/L (3.5-5.1)
[2017-10-12 18:48] LABS: BAND % (MANUAL) 2 % (0.0-5.0); BASOPHILS % (MANUAL) 0 % (0.0-2.0); EOSINOPHILS % (MANUAL) 6 % (0-4); LYMPHOCYTES % (MANUAL) 46 % (16-48); MONOCYTES % (MANUAL) 3 % (0-11.0); NEUTROPHILS % (MANUAL) 43 (42-76)
--- NOTE | 2017-10-12 19:31 | NUR ---
MS/RN OPENING NOTES PATIENT IN BED, RESTING COMFORTABLY IN BED, RESPIRATIONS EVEN AND UNLABORED, ON CONTACT ISOLATION FOR HIVRECEIVED ENDORSEMENT FROM AM RN FOR PAULETTE. OBSERVED CALM,AND COOPERATIVE TO CARE. WILL ATTEND TO NEEDS, SKIN WARM TO TOUCH, TO KEEP SKIN/GROIN INTACT AND DRY, IV RUNNING ON LFA W/ NO S/S OF INFILTRATION.
[2017-10-12 19:52] VITALS: BP 142/92
[2017-10-12] MEDS: TRIUMEQ TABLET PO SCH (20:06)
[2017-10-12] MEDS: HYDROMORPHONE INJ 2 MG/ML DISP.SYRIN IV PRN (20:20)
--- NOTE | 2017-10-12 20:24 | NUR ---
PAIN REPORTED 10/10 IN ABDOMEN, WHILE AMBULATING TO THE BATHROOM, DILAUDID IVP 05.ML GIVEN MONITORING FOR EFFECTIVENESS. ALERT, ORIENTED.
[2017-10-12 20:28] VITALS: BP 142/92
[2017-10-13] MEDS: HYDROMORPHONE INJ 2 MG/ML DISP.SYRIN IV PRN ×6 (00:13→23:00)
[2017-10-13] MEDS: PIPERACILLIN /TAZOBACTAM 3.375 G in IV NS 0.9% 50 ML IV SCH ×4 (05:12→23:00)
[2017-10-13] MEDS: VANCOMYCIN HCL 125 MG/2.5 ML ORAL.SUSP PO SCH ×4 (05:17→23:00)
--- NOTE | 2017-10-13 05:27 | NUR ---
MS/RN NOTES PAIN REPORTED OF 8/10 AWAKE, ALERT, X3, GRIMACE AND 8/10 REPORTED UPON GETTING UP IN BED AND GOING TO BATHROOM, WILL MONITOR EFFECTIVENESS.
[2017-10-13 06:38] LABS: CALCIUM, SERUM 8.4 mg/dL (8.5-10.1); CREATININE 1.1 mg/dL (0.6-1.3); POTASSIUM 3.6 mmol/L (3.5-5.1)
[2017-10-13 06:42] LABS: BASOPHILS % (AUTO) 1.1 % (0.0-2.0); EOSINOPHILS % (AUTO) 8.6 % (0.0-6.0); HEMATOCRIT 33 % (39-51); HEMOGLOBIN 10.5 g/dL (13.5-17.5); LYMPHOCYTES # (AUTO) 1.7 /CMM (0.8-4.8); LYMPHOCYTES % (AUTO) 39.4 % (20.0-44.0); MEAN CORPUSCULAR HGB CONC 32 g/dl (31.0-36.0); MEAN CORPUSCULAR VOLUME 75 fL (80-96); MONOCYTES # (AUTO) 0.2 /CMM (0.1-1.30); MONOCYTES % (AUTO) 5.6 % (2.0-12.0); NEUTROPHILS % (AUTO) 45.3 % (43.0-81.0); PLATELET COUNT (AUTO) 310 /CMM (150-450); RDW COEFFICIENT OF VARIATION 18.2 (11.5-15.0); RED BLOOD CELL COUNT(AUTO) 4.39 MIL/uL (4.5-6.0); WHITE BLOOD COUNT (AUTO) 4.4 K/uL (4.3-11.0)
--- NOTE | 2017-10-13 06:58 | NUR ---
316-1 MS/RN NOTES PATIENT IN BED, ALERT, ORIENTED X3, ABLE TO SLEEP DURING THE NIGHT, RESPIRATIONS EVEN AND UNLABORED, ON PAIN MANAGEMENT, DILAUDI IVP, IV ANTIBIOTICS WITH NO S/S OF ADVERSE REACTION, ABLE TO AMBULATE WITH OBSERVE GAIT DIFFICULTY. BWED IN LOCK POSITION, CALL LIGHTS WITHIN REACH, WILL CONTINUE TO MONITOR.
--- NOTE | 2017-10-13 07:20 | NUR ---
MS/RN OPENING NOTE PATIENT ALERT AND ORIENTED X4. RESPIRATION REGULAR AND UNLABORED. DENIES SOB. DENIES PAIN. LFA G 22 PATENT AND IV INFUSING WITH NO S/S INFILTRATION. BED LOW AND LOCKED. SIDE RAILS UP X2. CALL LIGHT WITHIN REACH. WILL CONTINUE TO MONITOR.
[2017-10-13 08:00] VITALS: BP 147/96
[2017-10-13] MEDS: METRONIDAZOLE 500MG/ NS 100ML 500 MG in PREMIX 1 EA IV SCH (08:51)
[2017-10-13] MEDS: NYSTATIN (PYXIS) 500,000 UNIT/5 ML ORAL.SUSP PO SCH ×3 (08:51→16:41)
[2017-10-13] MEDS: CHOLESTYRAMINE/ASPARTAME 4 G/PKT PACKET PO SCH ×2 (08:51→20:15)
[2017-10-13] MEDS: PANTOPRAZOLE 40 MG TABLET.DR PO SCH (08:51)
[2017-10-13] MEDS: SULFAMETH/TRIMETH 800/160 MG 1 UDTAB TABLET PO SCH (08:51)
[2017-10-13] MEDS: BENAZEPRIL HCL 10 MG TABLET PO SCH (08:52)
[2017-10-13] MEDS: AZITHROMYCIN 250 MG TABLET PO SCH (08:52)
[2017-10-13] MEDS: IV NS 0.9% 1,000 ML IV PRN (12:18)
[2017-10-13 14:00] VITALS: BP 141/87
[2017-10-13] MEDS: SOD FERRIC GLUC 125 MG in IV NS 0.9% 100 ML IV SCH (14:04)
[2017-10-13 16:00] VITALS: BP 156/93
[2017-10-13] MEDS: METRONIDAZOLE 500 MG TABLET PO SCH ×2 (16:41→23:00)
--- NOTE | 2017-10-13 18:04 | NUR ---
MS/RN CLOSING NOTE PATIENT ALERT AND ORIENTED X4. DENIES SOB. BREATHING REGULAR AND UNLABORED. DENIES PAIN. CONTINENT ON BOWEL AND BLADDER. AMBULATES UDDER SUPERVISION. REMAINS ON CONTACT ISOLATION FOR C DIFF. LFA G 22 PATENT AND IV INFUSING WITH NO S/S INFILTRATION. BED LOW AND LOCKED. SIDE RAILS UP X2. CALL LIGHT WITHIN REACH. WILL ENDORSE TO SUPERVISOR SPEECH.
[2017-10-13 20:00] VITALS: BP 144/92
[2017-10-13] MEDS: TRIUMEQ TABLET PO SCH (20:16)
[2017-10-13] MEDS: LOPERAMIDE HCL (2 MG CAP) 2 MG CAPSULE PO PRN (20:16)
[2017-10-13] MEDS: ZOLPIDEM TARTRATE 5 MG TABLET PO PRN (22:59)
[2017-10-14] MEDS: HYDROMORPHONE INJ 2 MG/ML DISP.SYRIN IV PRN ×7 (02:12→23:40)
[2017-10-14] MEDS: PIPERACILLIN /TAZOBACTAM 3.375 G in IV NS 0.9% 50 ML IV SCH (05:19)
[2017-10-14] MEDS: VANCOMYCIN HCL 125 MG/2.5 ML ORAL.SUSP PO SCH ×4 (05:19→23:18)
[2017-10-14 07:05] LABS: BASOPHILS % (AUTO) 0.7 % (0.0-2.0); EOSINOPHILS % (AUTO) 10.2 % (0.0-6.0); HEMATOCRIT 32 % (39-51); HEMOGLOBIN 10.6 g/dL (13.5-17.5); LYMPHOCYTES # (AUTO) 1.4 /CMM (0.8-4.8); LYMPHOCYTES % (AUTO) 35.5 % (20.0-44.0); MEAN CORPUSCULAR HGB CONC 33 g/dl (31.0-36.0); MEAN CORPUSCULAR VOLUME 74 fL (80-96); MONOCYTES # (AUTO) 0.3 /CMM (0.1-1.30); MONOCYTES % (AUTO) 7.6 % (2.0-12.0); NEUTROPHILS # (AUTO) 1.8 /CMM (1.8-8.9); PLATELET COUNT (AUTO) 316 /CMM (150-450); RDW COEFFICIENT OF VARIATION 19.4 (11.5-15.0); RED BLOOD CELL COUNT(AUTO) 4.36 MIL/uL (4.5-6.0); WHITE BLOOD COUNT (AUTO) 3.9 K/uL (4.3-11.0)
[2017-10-14 07:08] LABS: CALCIUM, SERUM 8.2 mg/dL (8.5-10.1); CREATININE 1.2 mg/dL (0.6-1.3); POTASSIUM 3.6 mmol/L (3.5-5.1)
--- NOTE | 2017-10-14 07:32 | NUR ---
MS/RN OPENING NOTES RECEIVED PATIENT IN BED AWAKE, ALERT AND ORIENTED X4. ABLE TO MAKE NEEDS KNOWN, NO C/O PAIN OR DISCOMFORTS VOICED AT THIS TIME. ON ROOM AIR, RESPIRATION REGULAR AND UNLABORED. IV ACCESS ON LFA G #22 INTACT AND PATENT, IVF OF NS AT 75ML/HR INFUSING WITH NO S/S INFILTRATION NOTED. BED IN LOW/LOCKED WITH SIDE RAILS UP X2. CALL LIGHT WITHIN REACH. WILL CONTINUE TO MONITOR.
[2017-10-14 08:00] VITALS: BP 124/96
[2017-10-14] MEDS: LOPERAMIDE HCL (2 MG CAP) 2 MG CAPSULE PO PRN (08:19)
[2017-10-14] MEDS: CHOLESTYRAMINE/ASPARTAME 4 G/PKT PACKET PO SCH ×2 (08:20→20:28)
[2017-10-14] MEDS: SULFAMETH/TRIMETH 800/160 MG 1 UDTAB TABLET PO SCH (08:20)
[2017-10-14] MEDS: NYSTATIN (PYXIS) 500,000 UNIT/5 ML ORAL.SUSP PO SCH ×3 (08:20→16:07)
[2017-10-14] MEDS: METRONIDAZOLE 500 MG TABLET PO SCH ×3 (08:20→23:17)
[2017-10-14] MEDS: PANTOPRAZOLE 40 MG TABLET.DR PO SCH (08:20)
[2017-10-14] MEDS: BENAZEPRIL HCL 10 MG TABLET PO SCH (08:21)
[2017-10-14] MEDS: HYDROCODONE BIT/HOMATROPINE 5 ML UDC PO PRN (12:40)
[2017-10-14] MEDS: IV NS 0.9% 1,000 ML IV PRN (14:18)
[2017-10-14 16:00] VITALS: BP 125/88
--- NOTE | 2017-10-14 19:20 | NUR ---
RN MS NOTES RECEIVED PATIENT IN BED, ALERT AND ORIENTED X 4, VERBALLY RESPONSIVE. NO SOB NOTED, BREATHING EVEN AND UNLABORED, PATIENT DENIES PAIN AT THIS TIME, IN NO ACUTE DISTRESS, RECEIVING IVF ORDERED. PLACED CALL LIGHT WITHIN EASY REACH. PLACED BE DIN LOW POSITION AND LOCKED IN PLACE. WILL CONTINUE TO MONITOR PATIENT.
--- NOTE | 2017-10-14 19:28 | NUR ---
MS/RN CLOSING NOTES PATIENT RESTING IN BED AWAKE, ALERT AND ORIENTED X4. ABLE TO MAKE NEEDS KNOWN WITH C/O PAIN ON THE ABDOMEN ON AND OFF DURING THE DAY. PRN DILAUDID 2MG IVP GIVEN ORDERED. ON ROOM AIR, RESPIRATION EVEN WITH NO SOB NOTED. IV ACCESS ON LFA G #22 INTACT AND PATENT, IVF OF NS AT 75ML/HR INFUSING WITH NO S/S INFILTRATION NOTED. HOB KEPT ELEVATED. BED IN LOW/LOCKED WITH SIDE RAILS UP X2. CALL LIGHT WITHIN REACH. ALL NEEDS AND CARE ATTENDED WELL. ENDORSED TO AIR POLLUTION SPECIALIST NURSE FOR PAULETTE..
[2017-10-14 20:00] VITALS: BP 157/94
[2017-10-14] MEDS: TRIUMEQ TABLET PO SCH (20:26)
[2017-10-14] MEDS: ZOLPIDEM TARTRATE 5 MG TABLET PO PRN (23:18)
--- NOTE | 2017-10-14 23:18 | NUR ---
RN NOTES PATIENT REQUESTED FOR AMBIEN TO HELP HIM SLEEP. ADMINISTERED MEDICATION ORDERED. WILL COTNIUE TO MONITOR PT.
[2017-10-15 02:45] LABS: OCCULT BLOOD STOOL NEGATIVE (NEGATIVE)
[2017-10-15] MEDS: HYDROMORPHONE INJ 2 MG/ML DISP.SYRIN IV PRN ×4 (02:47→12:52)
[2017-10-15] MEDS: IV NS 0.9% 1,000 ML IV PRN (04:27)
[2017-10-15] MEDS: VANCOMYCIN HCL 125 MG/2.5 ML ORAL.SUSP PO SCH ×2 (06:13→12:53)
--- NOTE | 2017-10-15 06:36 | NUR ---
RN CLOSING NOTES PATIENT IN BED, ASLEEP BUT EASILY AROUSABLE, IN NO ACUTE DISTRESS, NO SOB, BREATHING EVEN AND UNLABORED, ALL PATIENT'S NEEDS ATTENDED TO THROUGHOUT THE SHIFT. PATIENT CONTINUES TO RECEIVE IVF ORDERED VIA IV LINE ON LFA, PT IS TOLERATING INFUSION WELL. PLACED CALL LIGHT WITHIN EASY REACH, BED IN LOW POSITION AND LOCKED IN PLACE. WILL ENDORSE TO AM SHIFT NURSE FOR CONTINUITY OF CARE.
--- NOTE | 2017-10-15 07:30 | NUR ---
RN MS NOTES PT IN BED, AWAKE, ALERT AND ORIENTED, PAIN MEDICATION GIVEN FOR PAIN MANAGEMENT, BREATHING PATTERN NORMAL AND NOT LABORED, CALL LIGHT WITHIN REACH, ISOLATION PRECAUTIONS OBSERVED, NEEDS ATTENDED.
[2017-10-15 08:00] VITALS: BP 149/105
[2017-10-15 08:26] VITALS: BP 149/105
[2017-10-15] MEDS: METRONIDAZOLE 500 MG TABLET PO SCH (08:26)
[2017-10-15] MEDS: BENAZEPRIL HCL 10 MG TABLET PO SCH (08:26)
[2017-10-15] MEDS: PANTOPRAZOLE 40 MG TABLET.DR PO SCH (08:26)
[2017-10-15] MEDS: SULFAMETH/TRIMETH 800/160 MG 1 UDTAB TABLET PO SCH (08:26)
[2017-10-15] MEDS: NYSTATIN (PYXIS) 500,000 UNIT/5 ML ORAL.SUSP PO SCH ×2 (08:26→12:52)
[2017-10-15] MEDS: CHOLESTYRAMINE/ASPARTAME 4 G/PKT PACKET PO SCH (08:26)
[2017-10-15] MEDS ORDERED: METR500T PO (13:16)
[2017-10-15] MEDS ORDERED: NYST5ORA PO (13:16)
[2017-10-15] MEDS ORDERED: VANC125C11 PO (13:16)
--- NOTE | 2017-10-15 14:15 | NUR ---
RN MS NOTES PT IN BED, AWAKE, ALERT AND ORIENTED, PAIN MEDICATION GIVEN FOR PAIN MANAGEMENT, SEEN BY BLOSSOM BLOUNT, DISCHARGE ORDER GIVEN, PT INFORMED, DISCHARGE AND MEDICATION INSTRUCTIONS PROVIDED TO PT, INSTRUCTED PT TO FOLLOW UP WITH HIS PRIMARY CARE PHYSICIAN IN 1 WEEK, VERBALIZED UNDERSTANDING, BELONGINGS ACCOUNTED FOR, PRESCRIPTION AND PT'S OWN MEDICATIONS GIVEN TO PT, ASSISTED TO WHEELCHAIR, ASSISTED TO HOSPITAL LOBBY, PICKED UP BY FRIENDS, LEFT VIA PRIVATE CAR IN STABLE CONDITION.
== END 2017-10-15 14:00 | disposition home or self-care (01) | DRG 371 ==
LOC: ER 11:35 → MED 13:30
PROVIDERS: ADMIT Hospitalist; ATTEND Hospitalist
DX: A04.71 Enterocolitis due to Clostridium difficile, recurrent (principal); B20 Human immunodeficiency virus [HIV] disease; E44.0 Moderate protein-calorie malnutrition; R64 Cachexia; B37.0 Candidal stomatitis; E87.1 Hypo-osmolality and hyponatremia; I69.351 Hemiplegia and hemiparesis following cerebral infarction affecting right dominant side; R59.0 Localized enlarged lymph nodes; Z68.25 Body mass index [BMI] 25.0-25.9, adult; Z90.49 Acquired absence of other specified parts of digestive tract; Z85.49 Personal history of malignant neoplasm of other male genital organs; Z85.048 Personal history of other malignant neoplasm of rectum, rectosigmoid junction, and anus; Z79.899 Other long term (current) drug therapy; I10 Essential (primary) hypertension; E78.5 Hyperlipidemia, unspecified; E83.42 Hypomagnesemia; Z86.19 Personal history of other infectious and parasitic diseases; B35.1 Tinea unguium; E03.9 Hypothyroidism, unspecified; E83.51 Hypocalcemia; D50.9 Iron deficiency anemia, unspecified
CPT/HCPCS: 36415; 71045-TC; 76870-TC; 80048-TC; 80053-TC; 80061-TC; 80076-TC; 81000-TC; 82272-TC; 82728-TC; 82746; 83520; 83540-TC; 83605-TC; 83690-TC; 83735-TC; 84100-TC; 84439-TC; 84443-TC; 84480; 85025-TC; 85730-TC; 86256; 86360; 87040-TC; 87045-TC; 87070-TC; 87081-TC; 87086-TC; 87116; 87177; 87206; 87209; 87536; 89055; A4216; A4606; J1170; J2270; J2405; J2543; J2916; J3475; J3490; J7030; J7040; Q9967; Z7610

== ENCOUNTER 2018-06-21 17:57 | Inpatient (IN) | payer OTHER ==
[~2018-06-21] VITALS: Ht 160 cm; Wt 76.7 kg
[~2018-06-21 17:57] MED LIST: ABAC1TAB15 PO; BENA10TA9 PO; DARU1TAB PO; HYDR-3976 GT; LEUC10TA PO; METR500T PO; NYST5ORA PO; PYRI25TA PO; SULF1TAB48 PO; SULF500T46 PO; VANC125C11 PO
--- NOTE | 2018-06-21 18:10 | NUR ---
PT BIB SELF C/O LEFT EYE DROOPY X 6 HRS AGO AND DIARRHEA X 6 DAYS, PT IS AAOX4, NOT IN RESPIRATORY DISTRESS, KEPT RESTED AND COMFORTABLE, WILL CONTINUE TO MONITOR.
--- NOTE | 2018-06-21 18:25 | NUR ---
SEEN AND EXAMINED BY DR. RAHMAN.
[2018-06-21] MEDS ORDERED: KETOROLAC TROMETHAMINE 15 MG/ML VIAL ONE (18:51)
[2018-06-21] MEDS ORDERED: KETOROLAC TROMETHAMINE INJ 30 MG/ML VIAL IV ONE (19:00)
[2018-06-21] MEDS ORDERED: IV NS 0.9% 1,000 ML BAG IV ONE (19:00)
[2018-06-21 19:07] LABS: BASOPHILS % (AUTO) 0.8 % (0.0-2.0); EOSINOPHILS % (AUTO) 9.5 % (0.0-6.0); HEMATOCRIT 44 % (39-51); HEMOGLOBIN 14.4 g/dL (13.5-17.5); LYMPHOCYTES % (AUTO) 23.7 % (20.0-44.0); MEAN CORPUSCULAR HGB CONC 33 g/dl (31.0-36.0); MEAN CORPUSCULAR VOLUME 86 fL (80-96); MONOCYTES # (AUTO) 0.3 /CMM (0.1-1.30); MONOCYTES % (AUTO) 7.5 % (2.0-12.0); NEUTROPHILS # (AUTO) 2.5 /CMM (1.8-8.9); NEUTROPHILS % (AUTO) 58.5 % (43.0-81.0); PLATELET COUNT (AUTO) 194 /CMM (150-450); WHITE BLOOD COUNT (AUTO) 4.3 K/uL (4.3-11.0)
[2018-06-21 19:19] LABS: CARBON DIOXIDE 26 mmol/L (21-32); CHLORIDE 107 mmol/L (98-107); CREATININE 1.1 mg/dL (0.6-1.3); GLUCOSE 88 mg/dL (74-106); POTASSIUM 3.7 mmol/L (3.5-5.1); SODIUM SERUM 139 mmol/L (136-145); UREA NITROGEN, BLOOD 13 mg/dL (7-18)
[2018-06-21 19:24] LABS: ALANINE AMINOTRANSFERASE 26 U/L (12-78); ALKALINE PHOSPHATASE 63 U/L (46-116); ASPARTATE AMINOTRANSFERASE 18 U/L (15-37); BILIRUBIN,TOTAL 0.2 mg/dL (0.2-1.0); LIPASE 55 U/L (73-393); TOTAL PROTEIN, SERUM 6.4 g/dL (6.4-8.2)
--- NOTE | 2018-06-21 19:56 | NUR ---
received endorsement by MORALES Crowell. pt is being admitted. waiting for room assigment. will continue to monitor pt's condition and safety.
--- NOTE | 2018-06-21 21:03 | NUR ---
CALLED NURSING SUP REQUESTED TELE BED
--- NOTE | 2018-06-21 21:08 | NUR ---
ADMIT TO ROOM 329 TELE DX COLITIS, DEHYDRATION, BRAIN MASS
--- NOTE | 2018-06-21 21:29 | NUR ---
REPORT GIVEN TO 3W MORALES [place]. WILL TRANSPORT Pt PER ACLS PROTOCOL.
--- NOTE | 2018-06-21 22:00 | NUR ---
TIE TAPE MACHINE OPERATOR NOTES PT ARRIVED ON TO THE UNIT AT 2150 VIA GURNEY. PT WALKED FROM [place] TO BED. PT HAS RIGHT SIDED WEAKNESS AND UNSTEADY GAIT. ALL PT BELONGINGS ACCOUNTED FOR AND DOCUMENTED. PT ORIENTED TO THE USE OF THE CALL LIGHT. PT TELE MONITORED AT [facility] [place]. PT HAS A LEFT SHOULDER IV #20 INTACT AND PATENT. PT COMPLAINS OF DIARRHEA FOR 6 DAYS AND REOCCURRING LEFT EYE DROOPING AND PAIN. SAFETY PRECAUTIONS IN PLACE, BED IN LOWEST LOCKED POSITION, X2 SIDE RAILS UP AND CALL LIGHT WITHIN REACH. WILL CARRY OUT ALL INTERVENTIONS ORDERED. WILL CONTINUE TO MONITOR.
[2018-06-21 22:25] VITALS: BP 148/92
[2018-06-21] MEDS ORDERED: Z GUARD REMEDY 2 OZ OINT TP PRN (22:30)
[2018-06-21] MEDS ORDERED: MAG HYDROX/AL HYDROX/SIMETH 30 ML UDC PO PRN (22:30)
[2018-06-21] MEDS ORDERED: MAGNESIUM HYDROXIDE 30 ML UDC PO PRN (22:30)
[2018-06-21] MEDS ORDERED: MORPHINE SULFATE INJ 2 MG/ML DISP.SYRIN IV PRN (22:30)
[2018-06-21] MEDS ORDERED: ACETAMINOPHEN 325 MG TABLET PO PRN (22:30)
[2018-06-21] MEDS ORDERED: ONDANSETRON HCL/PF 4 MG/2 ML VIAL IVP PRN (22:30)
[2018-06-21] MEDS ORDERED: METRONIDAZOLE 500MG/ NS 100ML 100 ML IV ONE (22:56)
[2018-06-21] MEDS ORDERED: METRONIDAZOLE 500MG/ NS 100ML 500 MG in PREMIX 1 EA IV SCH (23:00)
[2018-06-21] MEDS: IV NS 0.9% 1,000 ML IV PRN (23:09)
[2018-06-21] MEDS: HYDROCODONE/APAP 5/325MG 1 EACH TABLET PO PRN (23:31)
[2018-06-21] MEDS: VANCOMYCIN HCL 125 MG/2.5 ML ORAL.SUSP PO SCH (23:39)
--- NOTE | 2018-06-21 23:39 | NUR ---
RN NOTES ORDER FOR PO VANCOMYCIN 125MG ORAL SOLUTION FAXED TO [facility]ARCH [facility]NA[facility]. PER [facility] MEDICATION UNAVAILABLE IN OVERNIGHT MEDICATION LOCKER. WILL ENDORSE TO DAY SHIFT NURSE FOR CONTINUITY OF CARE.
[2018-06-22 00:19] VITALS: BP 147/86
[2018-06-22] MEDS: VANCOMYCIN HCL 125 MG/2.5 ML ORAL.SUSP PO SCH ×4 (05:59→23:49)
[2018-06-22 06:39] LABS: BASOPHILS % (AUTO) 0.5 % (0.0-2.0); EOSINOPHILS % (AUTO) 10.4 % (0.0-6.0); HEMATOCRIT 41 % (39-51); HEMOGLOBIN 13.3 g/dL (13.5-17.5); LYMPHOCYTES # (AUTO) 0.9 /CMM (0.8-4.8); LYMPHOCYTES % (AUTO) 26.8 % (20.0-44.0); MEAN CORPUSCULAR HGB CONC 33 g/dl (31.0-36.0); MEAN CORPUSCULAR VOLUME 85 fL (80-96); MONOCYTES # (AUTO) 0.3 /CMM (0.1-1.30); MONOCYTES % (AUTO) 8.4 % (2.0-12.0); NEUTROPHILS # (AUTO) 1.8 /CMM (1.8-8.9); NEUTROPHILS % (AUTO) 53.9 % (43.0-81.0); PLATELET COUNT (AUTO) 155 /CMM (150-450); RED BLOOD CELL COUNT(AUTO) 4.82 MIL/uL (4.5-6.0); WHITE BLOOD COUNT (AUTO) 3.3 K/uL (4.3-11.0)
--- NOTE | 2018-06-22 06:39 | NUR ---
RN CLOSING NOTES PT ALERT AND ORIENTED, RESTING IN BED. NO COMPLAINTS OF PAIN, SOB OR DISTRESS AT THIS TIME. PT TELE MONITORED AT [facility] IN THE 80S. PT HAS A LEFT SHOULDER #20 @60ML/HR. PT TOLERATING FLUIDS WELL. SAFETY PRECAUTIONS IN PLACE, BED IN LOWEST LOCKED POSITION, X2 SIDE RAILS UP AND CALL LIGHT WITHIN REACH. ALL PATIENT NEEDS MET OVERNIGHT. WILL ENDORSE TO DAY SHIFT NURSE FOR CONTINUITY OF CARE.
[2018-06-22 06:56] LABS: THYROID STIMULATING HORMONE 2.277 uIU/mL (0.358-3.74)
[2018-06-22 06:57] LABS: CALCIUM, SERUM 8.5 mg/dL (8.5-10.1); MAGNESIUM 1.7 mg/dL (1.8-2.4); PHOSPHORUS 3.4 mg/dL (2.5-4.9); POTASSIUM 3.8 mmol/L (3.5-5.1)
[2018-06-22] MEDS ORDERED: HYDROMORPHONE INJ 2 MG/ML DISP.SYRIN IV PRN (07:30)
--- NOTE | 2018-06-22 08:00 | NUR ---
tele wire tester: initial assessment received pt in bed awake, a/ox4. no c/o pain or any discomfort. vss. instructed to call for assistance. will continue to monitor.
[2018-06-22] MEDS: METRONIDAZOLE 500MG/ NS 100ML 500 MG in PREMIX 1 EA IV SCH ×3 (08:34→21:53)
[2018-06-22] MEDS ORDERED: GADODIAMIDE 5 MMOL/10 ML VIAL IJ ONE (09:00)
--- NOTE | 2018-06-22 10:00 | NUR ---
m/s car starter: notes tele removed. instructed to call for assistance. will monitor.
[2018-06-22] MEDS: Magnesium 1GM/D5W 100ML PREMIX 100 ML IV SCH ×2 (10:58→12:11)
[2018-06-22] MEDS: PANTOPRAZOLE 40 MG TABLET.DR PO SCH (11:29)
--- NOTE | 2018-06-22 12:40 | NUR ---
M/S TALENT ACQUISITION ASSISTANT: NOTES DR. NAPOLES CALLED AND INFORMED ME THAT HER LESION ON HER CAT SCAN IS COMPATIBLE TO TUMOR. YUDY ([facility]) NOTIFIED, LEFT MESSAGE. PT FOR NEURO CONSULT. WILL CONTINUE TO MONITOR.
--- NOTE | 2018-06-22 13:00 | NUR ---
m/s hand tacker: notes still awaiting for neurologist. rajesh ([facility]) aware of mri brain result with no new order at this time.
--- NOTE | 2018-06-22 14:00 | NUR ---
m/s rn document improvement specialist: notes pt sounds asleep at this time. no distress noted. will continue to monitor.
--- NOTE | 2018-06-22 16:00 | NUR ---
m/s antique clock repairer: notes pt resting comfortable in bed. no distress noted. will continue to monitor.
--- NOTE | 2018-06-22 18:20 | NUR ---
m/s time study engineer: notes in bed awake and on the phone at this time. no distress noted. needs attended. call light within reach. will monitor.
--- NOTE | 2018-06-22 19:05 | NUR ---
RN MS OPENING NOTES RECEIVED PATIENT IN BED AWAKE ALERT AND ORIENTED X 4, ABLE TO MAKE NEEDS KNOWN,RESPIRATIONS EVEN AND UNLABORED WITH EQUAL RISE AND FALL OF CHEST, DENIES ANY PAIN OR DISCOMFORT AT THIS TIME, IV SITE TO LEFT SHOULDER #20G INTACT AND PATENT, NO REDNESS, NO INFILTRATION PRESENT, ON ISO PRECAUTIONS FOR HX OF C.DIFF. WILL CONTINUE TO MONITOR FOR EPISODES OF DIARRHEA. FLUIDS AND TOILETING OFFERED, SAFETY PRECAUTIONS IN PLACE, LOW BED AND LOCKED AND CALL LIGHT KEPT WITHIN REACH, ALL NEEDS ATTENDED WILL CONTINUE TO MONITOR.
[2018-06-22 21:32] VITALS: BP 154/96
--- NOTE | 2018-06-22 21:40 | NUR ---
RN MS NOTES RECEIVED CALLED FROM DR. GIO JOHN FOR NEW ORDER OF DECADRON 4MG IV Q6HR , GIVE ONE NOW. ORDER READ BACK , NOTED AND CARRIED OUT.
[2018-06-22] MEDS: HYDROCODONE/APAP 5/325MG 1 EACH TABLET PO PRN (21:55)
--- NOTE | 2018-06-22 21:55 | NUR ---
RN MS NOTES PATIENT COMPLAIN TO PAIN TO ABDOMEN AREA 01/08 REQUESTING FOR PAIN MEDICATION NORCO PRN GIVEN ORDERED WILL CONTINUE TO MONITOR.VS WNL
[2018-06-22] MEDS ORDERED: DEXAMETHASONE SOD PHOSPHATE 10 MG/ML VIAL IV ONE (22:00)
[2018-06-22] MEDS: IV NS 0.9% 1,000 ML IV PRN (23:49)
[2018-06-23] MEDS: VANCOMYCIN HCL 125 MG/2.5 ML ORAL.SUSP PO SCH ×3 (05:08→17:39)
[2018-06-23] MEDS: METRONIDAZOLE 500MG/ NS 100ML 500 MG in PREMIX 1 EA IV SCH ×3 (05:09→20:45)
[2018-06-23] MEDS: DEXAMETHASONE SOD PHOSPHATE 10 MG/ML VIAL IV SCH ×3 (05:09→17:36)
--- NOTE | 2018-06-23 06:33 | NUR ---
RN MS CLOSING NOTES PATIENT IN BED AWAKE ALERT AND ORIENTED X 4, ABLE TO MAKE NEEDS KNOWN,RESPIRATIONS EVEN AND UNLABORED WITH EQUAL RISE AND FALL OF CHEST, DENIES ANY PAIN OR DISCOMFORT AT THIS TIME, IV SITE TO LEFT SHOULDER #20G INTACT AND PATENT, NO REDNESS, NO INFILTRATION PRESENT, ON ISO PRECAUTIONS FOR HX OF C.DIFF. WILL CONTINUE TO MONITOR FOR EPISODES OF DIARRHEA. FLUIDS AND TOILETING OFFERED, SAFETY PRECAUTIONS IN PLACE, LOW BED AND LOCKED AND CALL LIGHT KEPT WITHIN REACH, ALL NEEDS ATTENDED WILL CONTINUE TO MONITOR AND ENDORSE TO NEXT SHIFT.
[2018-06-23 07:50] LABS: BASOPHILS % (AUTO) 0.1 % (0.0-2.0); EOSINOPHILS % (AUTO) 0.2 % (0.0-6.0); HEMATOCRIT 42 % (39-51); HEMOGLOBIN 13.8 g/dL (13.5-17.5); LYMPHOCYTES # (AUTO) 0.9 /CMM (0.8-4.8); LYMPHOCYTES % (AUTO) 25.4 % (20.0-44.0); MEAN CORPUSCULAR HGB CONC 33 g/dl (31.0-36.0); MEAN CORPUSCULAR VOLUME 84 fL (80-96); MONOCYTES # (AUTO) 0.1 /CMM (0.1-1.30); MONOCYTES % (AUTO) 1.9 % (2.0-12.0); NEUTROPHILS # (AUTO) 2.5 /CMM (1.8-8.9); NEUTROPHILS % (AUTO) 72.4 % (43.0-81.0); PLATELET COUNT (AUTO) 183 /CMM (150-450); RED BLOOD CELL COUNT(AUTO) 4.97 MIL/uL (4.5-6.0); WHITE BLOOD COUNT (AUTO) 3.4 K/uL (4.3-11.0)
[2018-06-23 08:00] VITALS: BP 122/84
--- NOTE | 2018-06-23 08:00 | NUR ---
RN NOTES PATIENT SEEN IN THE BED A/O X4. PATIENT CONTACT ISOLATION. PATIENT STABLE HAS NO ACUTE RESPIRATORY DISTRESS, V/S STABLE, SCHEDULED MEDICATION ADMINISTERED, PATIENT HAS IV ACCESS ON LEFT SHOULDER INTACT INFUSING NS AT 75 ML/HR INTACT. PATIENT HAS RIGHT SIDE WEAKNESS, AMBULATORY, USING BATHROOM, REFUSED PAIN AT THIS TIME. NEEDS ATTENDED AND ANTICIPATED. CALL LIGHT WITHIN TO REACH. CONTINUED MONITORING.
[2018-06-23 08:01] LABS: CALCIUM, SERUM 8.7 mg/dL (8.5-10.1); CREATININE 0.9 mg/dL (0.6-1.3); MAGNESIUM 1.8 mg/dL (1.8-2.4); POTASSIUM 3.9 mmol/L (3.5-5.1)
[2018-06-23] MEDS: Darunavir/Cobicistat (Prezcobix 800 mg-150 mg Tablet) PO SCH (10:51)
[2018-06-23] MEDS: BENAZEPRIL HCL 10 MG TABLET PO SCH (10:51)
[2018-06-23] MEDS: PANTOPRAZOLE 40 MG TABLET.DR PO SCH (10:51)
[2018-06-23] MEDS: Abacavir/Dolutegravir/Lamivudi (Triumeq Tablet) PO SCH (10:52)
--- NOTE | 2018-06-23 11:00 | NUR ---
RN NOTES STOOL OB COLLECTED.
[2018-06-23] MEDS: HYDROCODONE/APAP 5/325MG 1 EACH TABLET PO PRN ×2 (11:02→17:53)
--- NOTE | 2018-06-23 11:02 | NUR ---
RN NOTES ADMINISTERED NARCO 5/325 MG PO PRN FOR GENERALIZED PAIN 12/08 PER PATIENT REQUEST, V/S TAKEN BP 122/ 74, P-80, CONTINUED MONITORING.
--- NOTE | 2018-06-23 13:32 | NUR ---
RN NOTES STOOL X1 FORMED, LABS UNABLE TO DUE TEST, PATIENT HAS NO S/S OF CDIFF
--- NOTE | 2018-06-23 14:00 | NUR ---
RN NOTES PATIENT GOING TO TRANSFER ANOTHER ACUTE HOSPITAL, WAITING AVAILABLE BED.
[2018-06-23 16:00] VITALS: BP 139/76
--- NOTE | 2018-06-23 17:53 | NUR ---
RN NOTES ADMINISTERED NARCO 5/325 MG PO PRN FOR GENERALIZED PAIN 12/08 PER PATIENT REQUEST, V/S TAKEN BP139/76, P-83, CONTINUED MONITORING.
--- NOTE | 2018-06-23 18:30 | NUR ---
RN NOTES PATIENT STABLE, SCHEDULED MEDICATION ADMINISTERED, V/S STABLE. MEDICATION WERE ADMINISTERED FOR PAIN EFFECTIVE. NEEDS ATTENDED AND ANTICIPATED, CALL LIGHT WITHIN TO REACH. ENDORSED ONCOMING NURSE FOR PLAN OF CARE.
--- NOTE | 2018-06-23 19:30 | NUR ---
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
[2018-06-23 20:00] VITALS: BP 139/99
[2018-06-24] MEDS: VANCOMYCIN HCL 125 MG/2.5 ML ORAL.SUSP PO SCH ×5 (00:10→23:20)
[2018-06-24] MEDS: DEXAMETHASONE SOD PHOSPHATE 10 MG/ML VIAL IV SCH ×5 (00:12→23:19)
[2018-06-24] MEDS: METRONIDAZOLE 500MG/ NS 100ML 500 MG in PREMIX 1 EA IV SCH ×3 (05:00→21:59)
--- NOTE | 2018-06-24 06:49 | NUR ---
MS RN NOTES NO SIGNIFICANT CHANGE IN STATUS,SLEPT WELL,NO FALL,NO INJURY,AMBULATES WITH STAND BY ASSIST.IN NO ACUTE DISTRESS.WILL ENDORSE TO DAY NURSE FOR PAULETTE.
[2018-06-24 07:29] LABS: BASOPHILS % (AUTO) 0.1 % (0.0-2.0); HEMATOCRIT 43 % (39-51); HEMOGLOBIN 14.5 g/dL (13.5-17.5); LYMPHOCYTES # (AUTO) 1.1 /CMM (0.8-4.8); LYMPHOCYTES % (AUTO) 15.1 % (20.0-44.0); MEAN CORPUSCULAR HGB CONC 34 g/dl (31.0-36.0); MEAN CORPUSCULAR VOLUME 84 fL (80-96); MONOCYTES # (AUTO) 0.2 /CMM (0.1-1.30); MONOCYTES % (AUTO) 2.8 % (2.0-12.0); NEUTROPHILS # (AUTO) 5.7 /CMM (1.8-8.9); PLATELET COUNT (AUTO) 207 /CMM (150-450); RED BLOOD CELL COUNT(AUTO) 5.13 MIL/uL (4.5-6.0)
--- NOTE | 2018-06-24 07:40 | NUR ---
RN NOTES PATIENT A/OX4, RESTING IN BED, PATIENT STATED HE HAD A LOOSE BM BUT NOT WATERY THIS AM, SAW BM IN THE TOILET, BM APPEARS TO BE LOOSE BUT WITH BROWN PARTICLES. INFORMED PATIENT TO CALL NURSE FOR 2ND BM. NEEDS ATTENDED, KEPT PT COMFORTABLE, CALL LIGHT WITHIN REACH, WILL CONTINUE TO MONITOR.
[2018-06-24 07:53] LABS: CALCIUM, SERUM 9.2 mg/dL (8.5-10.1); CREATININE 1.1 mg/dL (0.6-1.3); POTASSIUM 3.8 mmol/L (3.5-5.1)
[2018-06-24] MEDS: FLUCONAZOLE (100 MG) 100 MG TABLET PO SCH (09:07)
[2018-06-24] MEDS: Abacavir/Dolutegravir/Lamivudi (Triumeq Tablet) PO SCH (09:08)
[2018-06-24] MEDS: DAPSONE 25 MG TABLET PO SCH (09:08)
[2018-06-24] MEDS: Darunavir/Cobicistat (Prezcobix 800 mg-150 mg Tablet) PO SCH (09:08)
[2018-06-24] MEDS: BENAZEPRIL HCL 10 MG TABLET PO SCH (09:08)
[2018-06-24] MEDS: PANTOPRAZOLE 40 MG TABLET.DR PO SCH (09:08)
--- NOTE | 2018-06-24 13:00 | NUR ---
RN NOTES PATIENT HAD A SOFT, FORMED BM.
--- NOTE | 2018-06-24 13:15 | NUR ---
RN NOTES PATIENT CAME BACK, WITH INSTRUCTION TO KEEP PATIENT IN A SUPINE POSITION FOR 4-6 HOURS TO PREVENT SPINAL HEADACHE.
--- NOTE | 2018-06-24 14:00 | NUR ---
RN NOTES PATIENT WENT DOWN FOR A LUMBAR PUNCTURE
[2018-06-24] MEDS ORDERED: LIDOCAINE HCL/PF 1% 30 ML SDV ONE (14:05)
--- NOTE | 2018-06-24 15:45 | NUR ---
RN NOTES 11CC'S OF CSF SPECIMEN SENT TO LAB FOR TESTING.
[2018-06-24 16:00] VITALS: BP 150/77
[2018-06-24 16:04] LABS: CSF GLUCOSE 76 mg/dL (40-70); CSF PROTEIN 75.5 mg/dL (15-45)
--- NOTE | 2018-06-24 16:43 | NUR ---
RN NOTES RECEIVED CRITICAL LAB RESULT OF CSF WBC TUBE#1 = 31 AND TUBE #4 = 30. PLACED A CALL TO YUDY Hathaway DOG RACES MANAGER RELAYED RESULT, WITH NO NEW ORDER AT THIS TIME. PER DOG RACES MANAGER, CM AND DOCTORS INCLUDING DR. VIVAR AND INFECTIOUS DISEASE MD ARE TRYING TO ARRANGE A TRANSFER TO A HIGHER LEVEL OF CARE.
--- NOTE | 2018-06-24 18:41 | NUR ---
RN NOTES PATIENT A/OX4, SEEN BY CALLIE BLOUNT (INFECTIOUS DISEASE), AND RECEIVED NEW ORDERS. ORDERS NOTED AND CARRIED OUT. PATIENT KEPT ON A SUPINE POSITION, DENIES PAIN OR DISCOMFORT AT THIS TIME, PIV INFUSING AND TOLERATING WELL, NEEDS ATTENDED, CALL LIGHT WITHIN REACH, WILL ENDORSE TO ARMATURE WINDER REPAIRER FOR PAULETTE
--- NOTE | 2018-06-24 19:10 | NUR ---
MS/RN OPENING NOTES PT AWAKE, RESTING COMFORTABLY IN BED. ON ROOM AIR, BREATHING EVEN AND UNLABORED. DENIES SOB AND PAIN AT THIS TIME. IN NO ACUTE DISTRESS. NO BLEEDING FROM LUMBAR PUNCTURE SITE NOTED, BANDAID IN PLACE. IV TO LFA PATENT AND INTACT RUNNING IVF ORDERED. ISOLATION PRECAUTIONS IMPLEMENTED. BED IN LOW/LOCKED POSITION WITH CALL LIGHT IN REACH, BILATERAL UPPER SIDE RAILS IN PLACE. WILL CONTINUE TO MONITOR
[2018-06-24 20:00] VITALS: BP 132/86
[2018-06-24] MEDS: ACYCLOVIR IV 500 MG in IV D5W 100 ML IV SCH (20:39)
[2018-06-24] MEDS: HYDROCODONE/APAP 5/325MG 1 EACH TABLET PO PRN (20:49)
--- NOTE | 2018-06-24 20:54 | NUR ---
MS/RN NOTES PT C/O GENERALIZED ACHY PAIN, 12/08. REQUESTING NORCO. ADMINISTERED ORDERED.
[2018-06-24] MEDS: ATOVAQUONE 750 MG/5 ML UDC PO SCH (21:59)
[2018-06-25] MEDS ORDERED: SULFADIAZINE 500 MG PO SCH
[2018-06-25 04:08] LABS: *BASOS 0 % (Not Estab.); *EOS 0 % (Not Estab.); *HCT 39.5 % (37.5-51.0); *HGB 13.2 g/dL (13.0-17.7); *IMMATURE GRANULOCYTES 1 % (Not Estab.); *IMMATURE GRANULOCYTES(ABS) 0.1 x10E3/uL (0.0-0.1); *LYMPHOCYTES 12 % (Not Estab.); *LYMPHS, ABSOLUTE 1.1 x10E3/uL (0.7-3.1); *MCH 27.1 pg (26.6-33.0); *MCHC 33.4 g/dL (31.5-35.7); *MCV 81 fL (79-97); *MONOCYTES 3 % (Not Estab.); *MONOS, ABSOLUTE 0.3 x10E3/uL (0.1-0.9); *NEUTROPHILS 84 % (Not Estab.); *NEUTROPHILS, ABSOLUTE 7.7 x10E3/uL (1.4-7.0); *PLT 245 x10E3/uL (150-379); *RBC 4.87 x10E6/uL (4.14-5.80); *RDW 19.5 % (12.3-15.4)
[2018-06-25] MEDS: ACYCLOVIR IV 500 MG in IV D5W 100 ML IV SCH ×2 (04:24→12:30)
[2018-06-25] MEDS: METRONIDAZOLE 500MG/ NS 100ML 500 MG in PREMIX 1 EA IV SCH ×2 (05:56→13:57)
[2018-06-25] MEDS: DEXAMETHASONE SOD PHOSPHATE 10 MG/ML VIAL IV SCH ×2 (05:56→12:31)
[2018-06-25] MEDS: VANCOMYCIN HCL 125 MG/2.5 ML ORAL.SUSP PO SCH ×3 (05:56→17:34)
--- NOTE | 2018-06-25 07:38 | NUR ---
MS/RN CLOSING NOTES PT AWAKE, RESTING COMFORTABLY IN BED. ON ROOM AIR, BREATHING EVEN AND UNLABORED. DENIES SOB AND PAIN AT THIS TIME. IN NO ACUTE DISTRESS. NO BLEEDING FROM LUMBAR PUNCTURE SITE. IV TO LFA PATENT AND INTACT RUNNING IVF ORDERED. ISOLATION PRECAUTIONS IMPLEMENTED. SULFADIAZINE NOT AVAILABLE IN [place] OR SEEN IN PT;S CASSETTE. CALLED PHARMACY THIS AM AND WILL DELIVER AND TO GIVE 0600 DOSE LATE. DAY SHIFT RN MADE AWARE. NO SIGNIFICANT CHANGES OVERNIGHT. ALL NEEDS MET. KEPT COMFORTABLE. BED IN LOW/LOCKED POSITION WITH CALL LIGHT IN REACH, BILATERAL UPPER SIDE RAILS IN PLACE. ENDORSED TO DAY SHIFT RN PAULETTE.
[2018-06-25 08:00] VITALS: BP 129/75
--- NOTE | 2018-06-25 08:00 | NUR ---
m/s lead inspector: initial assessment received pt in bed awake, a/ox4. no c/o pain or any discomfort. vss. instructed to call for assistance. will continue to monitor.
[2018-06-25] MEDS: Abacavir/Dolutegravir/Lamivudi (Triumeq Tablet) PO SCH (08:22)
[2018-06-25] MEDS: Darunavir/Cobicistat (Prezcobix 800 mg-150 mg Tablet) PO SCH (08:22)
[2018-06-25] MEDS: ATOVAQUONE 750 MG/5 ML UDC PO SCH (08:22)
[2018-06-25] MEDS: BENAZEPRIL HCL 10 MG TABLET PO SCH (08:22)
[2018-06-25] MEDS: FLUCONAZOLE (100 MG) 100 MG TABLET PO SCH (08:22)
[2018-06-25] MEDS: PANTOPRAZOLE 40 MG TABLET.DR PO SCH (08:22)
[2018-06-25] MEDS: DAPSONE 25 MG TABLET PO SCH (08:22)
[2018-06-25 10:19] LABS: *% CD 4 POS. LYMPH 4.2 % (30.8-58.5); *% CD 8 POS. LYMPH 62.5 % (12.0-35.5); *ABSOLUTE CD 4 HELPER 46 /uL (359-1519); *ABSOLUTE CD 8 SUPPRESSOR 688 /uL (109-897); *CD4/CD8 RATIO 0.07 (0.92-3.72)
[2018-06-25 10:56] LABS: HEMATOCRIT 43 % (39-51); HEMOGLOBIN 13.9 g/dL (13.5-17.5); LYMPHOCYTES # (AUTO) 0.8 /CMM (0.8-4.8); LYMPHOCYTES % (AUTO) 8.7 % (20.0-44.0); MEAN CORPUSCULAR HGB CONC 33 g/dl (31.0-36.0); MEAN CORPUSCULAR VOLUME 84 fL (80-96); MONOCYTES # (AUTO) 0.2 /CMM (0.1-1.30); MONOCYTES % (AUTO) 2.5 % (2.0-12.0); NEUTROPHILS # (AUTO) 7.9 /CMM (1.8-8.9); NEUTROPHILS % (AUTO) 88.8 % (43.0-81.0); PLATELET COUNT (AUTO) 255 /CMM (150-450); RED BLOOD CELL COUNT(AUTO) 5.03 MIL/uL (4.5-6.0); WHITE BLOOD COUNT (AUTO) 8.9 K/uL (4.3-11.0)
[2018-06-25 11:21] LABS: CALCIUM, SERUM 8.8 mg/dL (8.5-10.1); CREATININE 1.4 mg/dL (0.6-1.3); POTASSIUM 3.3 mmol/L (3.5-5.1)
[2018-06-25] MEDS ORDERED: POTASSIUM CHLORIDE 20 MEQ TAB.PRT.SR PO ONE (12:00)
[2018-06-25] MEDS ORDERED: IV NS 0.9% 500 ML IV ONE (12:00)
--- NOTE | 2018-06-25 12:00 | NUR ---
m/s flare worker: md visit seen and examined by rajesh (frank) at this time. pt having lunch. instructed to call for assistance. will monitor.
[2018-06-25] MEDS: SULFADIAZINE 500 MG PO SCH ×2 (12:25→17:35)
--- NOTE | 2018-06-25 14:00 | NUR ---
m/s trailer driver: nephro f/u seen by dr. montilla. pt resting comfortable in bed.
[2018-06-25 16:21] VITALS: BP 135/83
--- NOTE | 2018-06-25 17:00 | NUR ---
m/s pulverizing and sifting operator: notes cn informed primary nurse that pt is possible transfer to another acute hospital ([facility]) due to higher level of care and accepting doctor will be dr. arroyo (neurosurgeon). pt made aware. francisco ([facility]) notified with order to d'c pt to another acute hospital and to continue inpatient medications. order read back and carried out and acknowledged.
--- NOTE | 2018-06-25 18:15 | NUR ---
m/s quality improvement coordinator: neuro f/u seen and examined by dr. Kuhn with order to change his decadron iv to po with same dose and still every 8 hours. order read back and carried out and acknowledged. made aware re: d'c planning to [facility] when bed is available.
--- NOTE | 2018-06-25 19:00 | NUR ---
m/s tool machinist: notes stanley (case management) called and informed me that [facility] has a bed. pt made aware. report given to manny (rn) for continuity of care.
--- NOTE | 2018-06-25 19:20 | NUR ---
m/s agricultural extension specialist: notes report given to david (rn) from [facility] for continuity of care.
[2018-06-25] MEDS ORDERED: AZITHROMYCIN 600 MG TABLET PO ONE (19:30)
--- NOTE | 2018-06-25 19:30 | NUR ---
MS/RN OPENING NOTES PT RECEIVED AWAKE, RESTING COMFORTABLY IN BED. ON ROOM AIR, BREATHING EVEN AND UNLABORED. DENIES SOB AND PAIN, IN NO ACUTE DISTRESS. IV TO LFA PATENT AND INTACT. BED IN LOW/LOCKED POSITION WITH CALL LIGHT IN REACH, UPPER SIDE RAILS IN PLACE. DC PLANNING TONIGHT TO [facility]. AMBULANCE ETA 1944. PT AWARE. DC PAPERWORK SIGNED AND COPIES MADE.
--- NOTE | 2018-06-25 20:15 | NUR ---
MS/RN NOTES PT DISCHARGED FROM UNIT VIA GURNEY WITH AMBULANCE TO [facility] IN STABLE CONDITION. DC AND TRANSFER PAPERWORK SIGNED AND TAKEN WITH PT. BELONGINGS LIST COMPLETED AND SIGNED. HOME MEDS GIVEN BACK TO PT. IV TO LFA REMAINED IN PLACE UPON DC, PT IS HARD STICK. PHOTO TAKEN AND PLACED IN THE CHART. DR. MENDEZ IS THE ACCEPTING PHYSICIAN AND PT GOING TO ROOM [facility].
[2018-06-25] MEDS ORDERED: METRONIDAZOLE 500 MG TABLET PO SCH (21:00)
[2018-06-25] MEDS ORDERED: DEXAMETHASONE 4 MG TABLET PO SCH (21:00)
[2018-06-26 07:08] LABS: VDRL, CSF Non Reactive (Non Rea:<1:1)
[2018-06-26 18:07] LABS: *HSV 2 DNA PCR Negative (Negative)
== END 2018-06-25 20:15 | disposition short-term general hospital (02) | DRG 97 ==
LOC: ER 17:59 → TELE 21:14 → MED 06-22 10:21
PROVIDERS: ADMIT Nurse Practitioner Acute Care; ATTEND Nurse Practitioner Acute Care
DX: G03.0 Nonpyogenic meningitis (principal); G93.6 Cerebral edema; A04.71 Enterocolitis due to Clostridium difficile, recurrent; B20 Human immunodeficiency virus [HIV] disease; I69.951 Hemiplegia and hemiparesis following unspecified cerebrovascular disease affecting right dominant side; E44.0 Moderate protein-calorie malnutrition; N17.9 Acute kidney failure, unspecified; E78.5 Hyperlipidemia, unspecified; E03.9 Hypothyroidism, unspecified; H02.402 Unspecified ptosis of left eyelid; I10 Essential (primary) hypertension; Z68.29 Body mass index [BMI] 29.0-29.9, adult; E86.9 Volume depletion, unspecified; D72.819 Decreased white blood cell count, unspecified; Z85.49 Personal history of malignant neoplasm of other male genital organs
CPT/HCPCS: 36415; 62270; 70450-TC; 70553-TC; 71045-TC; 80048-TC; 80061-TC; 80076-TC; 83615-TC; 83690-TC; 83735-TC; 84100-TC; 84443-TC; 84484-TC; 85025-TC; 85730-TC; 86360; 86592; 86635; 86694; 87081-TC; 88305-TC; 88312-TC; 89051-TC; A4216; A9579; G0378; J0133; J1100; J1885; J3475; J3490; J7030; J7040; J7060